=== PATIENT | female | born 1940 | race Caucasian/White ===

== ENCOUNTER 2020-09-27 08:25 | Emergency (ER) | payer MEDICARE, SELFPAY ==
[2020-09-27 08:30] VITALS: BP 144/75; PULSE 81; RESP 16; TEMP 36.2; O2SAT 97; BMI 32.6
[2020-09-27 08:40] VITALS: O2SAT 96
--- NOTE | 2020-09-27 08:49 | CT_ITS ---
STUDY: CT CERVICAL SPINE WITHOUT CONTRAST REASON FOR EXAM: Female, 80 years old. FALL YESTERDAY, C/O NECK PAIN RADIATION DOSAGE (If Supplied By Facility): CTDIvol = ( 22.32 ) mGy, DLP = ( 500.19 ) mGycm TECHNIQUE: High resolution transaxial imaging was performed without contrast material. Sagittal and coronal images were reconstructed. Individualized dose optimization techniques were used for this CT. COMPARISON: None FINDINGS: Craniocervical and atlantoaxial articulations degenerative and intact. Odontoid intact. Cervical straightening. No significant scoliosis. No acute cervical spine fracture, dislocation or osseous destruction. Skull base intact. Symmetric mastoid air cells. Uncomplicated surgical fixation at the C4, C5 and C6 levels. Multilevel neural foraminal narrowing most severe at C5-6. Mild facet joint arthrosis. Multilevel disc/posterior osseous ridging with mild central canal narrowing. Multilevel postsurgical endplates with disc height loss. Normal partially visualized lung apices. Asymmetric left thyroid lobe (axial image 151 series 3) measuring 4.[address]/Spine Cervical without Contras IMPRESSION: Cervical spine acutely intact Cervical straightening with degenerative changes Asymmetric left thyroid lobe (statistically goiter; consider nonemergent ultrasound evaluation) Electronically Signed: Shivam Miller DO at 9:26 EST Tel , Service support ,
--- NOTE | 2020-09-27 09:02 | ED.VIS.GEN ---
History of Present Illness Chief Complaint: Fall Informant: Patient Onset: Yesterday Current Severity: Mild Maximum Severity: Mild Narrative: Patient presents secondary to neck, right arm, right shoulder pain after a fall yesterday. Patient states that she was going out to get her mail yesterday when she fell in the snow. She landed on her right side. She does have history of proximal humerus replacement on the right. She has pain through this area, right upper chest, and states neck pain especially when she tries to lie down. She denies striking her head or loss of consciousness. She is not on anticoagulation. She denies extremity weakness or paresthesias. - Past Medical History (1) Coronary artery disease Status: Chronic (2) H/O heart artery stent Status: Chronic (3) CHF (congestive heart failure) Status: Chronic (4) GERD (gastroesophageal reflux disease) Status: Chronic Past Medical History - Allergies and Home Meds Allergies/Adverse Reactions: Allergies acetaminophen [From Percocet] Allergy (Verified 09/27/20 08:30) Other ampicillin Allergy (Verified 09/27/20 08:30) Rash azithromycin Allergy (Verified 09/27/20 08:30) Rash cefaclor [From Ceclor] Allergy (Verified 09/27/20 08:30) Rash gentamicin [From Garamycin] Allergy (Verified 09/27/20 08:30) Rash oxycodone [From Percocet] Allergy (Verified 09/27/20 08:30) Other tetracycline Allergy (Verified 09/27/20 08:30) Rash atorvastatin [From Lipitor] Adverse Reaction (Verified 09/27/20 08:30) Other rosuvastatin [From Crestor] Adverse Reaction (Verified 09/27/20 08:30) Other Primary Care Physician: Sundar Weller MD [Primary Care Provider] - Surgical History: appendectomy, cholecystectomy, - - Thyroid, proximal right humerus Smoking Status: Former smoker Review of Systems General: Denies: Chills, Fever Eyes: Denies: Visual changes - bilaterally ENT: Denies: Bilateral ear pain Cardiovascular: Reports: Chest pain Respiratory: Denies: Dyspnea, Cough Gastrointestinal: Denies: Abdominal pain, Vomiting, Diarrhea Musculoskeletal: Reports: Neck pain, Extremity Pain Neurological: Denies: Headache, Weakness, Parasthesia Hematologic: Denies: Easy bruising, Easy bleeding Allergy: Denies: Uticaria Physical Exam Vital Signs/Narrative: Vital Signs Temp Pulse Resp BP Pulse Ox 09/27/20 08:40 96 09/27/20 08:30 97.1 F L 81 16 144/75 H 97 Inital Vital Signs reviewed: Yes General: Well nourished, Well developed Head: Normocephalic Neck: Supple, - - No midline cervical tenderness. Cardiovascular: Regular rate, Regular rhythm Respiratory: No distress, CTA bilaterally, Chest tenderness - Mild right upper chest wall tenderness. Abdomen: Soft, Nontender Extremities: - - Mild tenderness of the right humeral head. Skin: Normal color Neurological: Alert, Oriented x3, Normal Strength, Normal Sensation Psychological: Normal affect Diagnostic/Tx/Re-eval Impressions Cervical Spine CT 09/27/20 08:49 IMPRESSION: Cervical spine acutely intact Cervical straightening with degenerative changes Asymmetric left thyroid lobe (statistically goiter; consider nonemergent ultrasound evaluation) Electronically Signed: Shivam Miller DO at 9:26 EST Tel , Service support , Chest X-Ray 09/27/20 09:10 IMPRESSION: No acute cardiopulmonary findings Electronically Signed: Shivam Miller DO at 9:28 EST Tel , Service support , Shoulder X-Ray 09/27/20 09:10 IMPRESSION: Uncomplicated right shoulder arthroplasty No acute fracture or dislocation Degenerative/postsurgical changes, as above Electronically Signed: Shivam Miller DO at 9:27 EST Tel , Service support , 09/27/20 08:49 CT Cervical [Spine Cervical without Contras] [CT] Stat 09/27/20 09:10 Chest PA and Lateral [RAD] Stat Shoulder min 2 Views [RAD] Stat - Medical Decision Making Chest x-ray per my interpretation reveals chronic changes with scoliosis. Right shoulder x-ray reveals chronic postop changes. No acute fracture. Radiologist interpretation is also reviewed. CT the C-spine is obtained. There is straightening of the normal lordosis but no acute fracture or malalignment. Patient is reassured with these findings. She is given return instructions. ED Disposition - Plan for ED Patient: Disposition: Home or Assisted Living Diagnosis: Cervical strain, Contusion of right shoulder Instructions: ED Shoulder Contusion, ED Neck Sprain or Strain, ED Mechanical Fall Referrals: Sundar Weller MD [Primary Care Provider] - 1 Week if not improving
--- NOTE | 2020-09-27 09:10 | RAD_ITS ---
STUDY: X-RAY - RIGHT SHOULDER REASON FOR EXAM: Female, 80 years old. FALL YESTERDAY- RIGHT ARM, NECK AND SHOULDER PAIN. HX RIGHT ARM FX AND SURGERY IN 2007 TECHNIQUE: 4 view(s) of the shoulder. COMPARISON: None. FINDINGS: Cervical fixation hardware. No acute fracture, dislocation or osseous destruction. Uncomplicated right shoulder arthroplasty. Healed right proximal humerus fracture. No significant soft tissue swelling. RAD/Shoulder min 2 Views IMPRESSION: Uncomplicated right shoulder arthroplasty No acute fracture or dislocation Degenerative/postsurgical changes, as above Electronically Signed: Shivam Miller DO at 9:27 EST Tel , Service support ,
--- NOTE | 2020-09-27 09:10 | RAD_ITS ---
STUDY: X-RAY CHEST REASON FOR EXAM: Female, 80 years old. FALL YESTERDAY- RIGHT ARM, NECK AND SHOULDER PAIN. HX RIGHT ARM FX AND SURGERY IN 2007 TECHNIQUE: PA and lateral views of the chest. COMPARISON: None. FINDINGS: Right shoulder arthroplasty. Cervical fixation hardware. Cardiac silhouette unremarkable. Pulmonary vascularity unremarkable. Aorta calcified. No focal patchy airspace opacities. No pleural effusions. COPD. Mild atelectasis. Upper abdominal surgical clips. Osseous structures demineralized with degenerative features. No pneumothorax. RAD/Chest PA and Lateral IMPRESSION: No acute cardiopulmonary findings Electronically Signed: Shivam Miller DO at 9:28 EST Tel , Service support ,
[2020-09-27 10:08] VITALS: BP 118/73; PULSE 71; RESP 16; O2SAT 98
== END 2020-09-27 10:09 | disposition home or self-care (01) ==
PROVIDERS: Emergency Provider Emergency Medicine
DX: S16.1XXA Strain of muscle, fascia and tendon at neck level, initial encounter (principal); S40.011A Contusion of right shoulder, initial encounter; I25.10 Atherosclerotic heart disease of native coronary artery without angina pectoris; Z95.5 Presence of coronary angioplasty implant and graft; Z90.49 Acquired absence of other specified parts of digestive tract; Z87.891 Personal history of nicotine dependence; W19.XXXA Unspecified fall, initial encounter
CPT/HCPCS: 71046; 72125; 73030; 99282

== ENCOUNTER 2021-07-30 06:27 | Inpatient (IN) | payer MEDICARE, SELFPAY ==
[2021-07-30] VITALS (14 sets, daily range): BP systolic 113–125; BP diastolic 54–61; PULSE 62–72; RESP 17–33; TEMP 36.4–37; O2SAT 82–97; BMI 36.9; BMI 31.2
--- NOTE | 2021-07-30 06:29 | RAD_ITS ---
STUDY: X-RAY CHEST REASON FOR EXAM: Female, 81 years old. dyspnea TECHNIQUE: Single AP portable view of the chest. COMPARISON: 09/27/2020 FINDINGS: Status post anterior cervical discectomy and fusion lower cervical spine. Patchy alveolar opacities in both lung bases consistent with bibasilar pneumonia. There is no demonstrated pleural abnormality. There is moderate cardiac enlargement. Normal mediastinum and marino. Normal visualized pulmonary arteries. Normal visualized aortic arch and descending thoracic aorta. There is a dextroscoliosis of the thoracic spine. Status post right shoulder hemiarthroplasty. There is no demonstrated abnormality of the visualized soft tissue structures of the upper abdomen. RAD/Chest 1 View (Portable) IMPRESSION: Bibasilar pneumonia. Electronically Signed: Rowdy Malik MD at 8:21 EST Tel , Service support ,
--- NOTE | 2021-07-30 06:29 | EKG12_ITS ---
Test Reason : SOB Blood Pressure : / mmHG Vent. Rate : 073 BPM Atrial Rate : 073 BPM P-R Int : 156 ms QRS Dur : 076 ms QT Int : 370 ms P-R-T Axes : 048 -14 040 degrees QTc Int : 407 ms Normal sinus rhythm Normal ECG Confirmed by GREYSON MCNALLY, AASHISH ([id number]), book editor FINESSE MARCELO ([id number]) on 07/31/2021 10:39:08 AM Referred By: CHACORTA Confirmed By:AASHISH RUBI MD
--- NOTE | 2021-07-30 06:31 | EDS_ITS ---
HPI <Dr. Johnny Blas, DO - Last Filed: 07/30/21 07:17> History of Present Illness Chief Complaint: Shortness of Breath Narrative Narrative: 81-year-old female on day 8 of COVID-19 symptoms presenting for evaluation. Patient states that she was in [place] last week and she found out that the people she was with tested positive for COVID-19. She did a home test this week which was positive. She complains of chills, body aches, cough, shortness of breath over this timeframe. She states she does not believe she had a fever. She has shortness of breath and shortness of breath with exertion. She states that she has a very painful cough and points to the center of her chest and states that it hurts for a couple of seconds after she coughs but other than that she is not having any chest pain. She has complained of diarrhea which is black over the course of this week. She states this is happened multiple times. She is denies history of gastric ulcer but does have a history of GERD. She is not on any blood thinners. She denies taking aspirin daily. She is 82% on room air. She is not usually oxygen dependent. She relates a history of CAD, CHF, GERD. She states she has been in touch with her primary care physician however after reporting a black stool she states that he did not seem very concerned. Patient does report now that she has been very lightheaded. She has some mild lower abdominal cramping. She denies urinary complaints. PFSH <Dr. Johnny Blas, DO - Last Filed: 07/30/21 07:17> [facility] Home Medications furosemide [Lasix] 40 mg PO BID 07/30/21 [History Last Taken Unknown] ondansetron HCl 8 mg BID PRN PRN 07/30/21 [History Last Taken Unknown] potassium 40 mg PO BID 07/30/21 [History Last Taken Unknown] Allergy/AdvReac Type Severity Reaction Status Date / Time acetaminophen [From Percocet] Allergy Other Verified 07/30/21 07:06 ampicillin Allergy Rash Verified 07/30/21 07:06 azithromycin Allergy Rash Verified 07/30/21 07:06 cefaclor [From Ceclor] Allergy Rash Verified 07/30/21 07:06 gentamicin [From Garamycin] Allergy Rash Verified 07/30/21 07:06 oxycodone [From Percocet] Allergy Other Verified 07/30/21 07:06 tetracycline Allergy Rash Verified 07/30/21 07:06 atorvastatin [From Lipitor] AdvReac Other Verified 07/30/21 07:06 rosuvastatin [From Crestor] AdvReac Other Verified 07/30/21 07:06 Social History Smoking Status: Never smoker ROS <Dr. Johnny Blas, - Last Filed: 07/30/21 07:17> ROS ED Constitutional Constitutional ED: Reports chills and fever(s) Eyes Eyes: Denies blurry vision or diplopia ENT ENT ED: Reports rhinorrhea; Denies ear pain Cardiovascular Cardiovascular: Reports palpitations; Denies chest pain Respiratory/Chest Respiratory/Chest: Reports cough, dyspnea and dyspnea on exertion Gastrointestinal Gastrointestinal: Reports abdominal pain, diarrhea and melena Genitourinary Genitourinary ED: Denies dysuria or hematuria Musculoskeletal Musculoskeletal: Reports myalgias; Denies arthralgias or neck pain Integumentary Denies abscess or rash Neurologic Neurologic: Denies headache(s) or paresthesias Psychiatric Psychiatric: Denies anxiety or depression EXAM <Dr. Johnny Blas, - Last Filed: 07/30/21 07:17> Physical Exam Const Vital Signs: 07/30/21 06:27 07/30/21 06:29 07/30/21 07:05 Temperature 97.7 F L 97.7 F L 97.5 F L Temperature Source Temporal Temporal Temporal Pulse Rate 70 72 Respiratory Rate 17 22 H Respiratory Effort Blood Pressure 125/55 H 125/55 H Blood Pressure Mean 78 78 Pulse Ox 82 93 94 Oxygen Delivery Method Room Air Nasal Cannula Nasal Cannula Oxygen Flow Rate (L/min) 4 4 07/30/21 07:09 07/30/21 08:03 07/30/21 10:05 Temperature 98.6 F Temperature Source Oral Pulse Rate 69 70 Respiratory Rate 33 H 27 H Respiratory Effort Short of Breath Blood Pressure Blood Pressure Mean Pulse Ox 97 93 Oxygen Delivery Method Nasal Cannula Nasal Cannula Oxygen Flow Rate (L/min) 4 4 Positive obese Constitutional Narrative: Hypoxic but does not appear to be in distress. Speaking in full sentences. General Appearance ED: Negative for pallor Nutritional Appearance: obese HEENT Reports dry mucous membranes atraumatic Mouth ED: Yes dry mucous membranes Mouth: dry mucous membranes Eyes PERRL and EOMs intact bilaterally General Eye ED: Negative for pale conjunctiva or scleral icterus Resp Auscultation: rales diffuse; Negative for wheezes Cardio regular rate and regular rhythm GI non-tender and non-distended GI Narrative: Brown stool on examination. No visible blood. Palpation: soft Extremity normal to inspection General Extremety ED: Negative for edema or tenderness General Extremity: Negative for edema Neuro oriented x3 and CN's II-XII intact bilaterally Sensorium / Orientation: alert Motor Exam: general weakness Psych mental status grossly normal Thought Process: normal thought process Skin General Skin Exam: Negative for jaundice or pallor <Dr. Twyla Shen MD - Last Filed: 07/30/21 11:11> Physical Exam Const Vital Signs: 07/30/21 06:27 07/30/21 06:29 07/30/21 07:05 Temperature 97.7 F L 97.7 F L 97.5 F L Temperature Source Temporal Temporal Temporal Pulse Rate 70 72 Respiratory Rate 17 22 H Respiratory Effort Blood Pressure 125/55 H 125/55 H Blood Pressure Mean 78 78 Pulse Ox 82 93 94 Oxygen Delivery Method Room Air Nasal Cannula Nasal Cannula Oxygen Flow Rate (L/min) 4 4 07/30/21 07:09 07/30/21 08:03 07/30/21 10:05 Temperature 98.6 F Temperature Source Oral Pulse Rate 69 70 Respiratory Rate 33 H 27 H Respiratory Effort Short of Breath Blood Pressure Blood Pressure Mean Pulse Ox 97 93 Oxygen Delivery Method Nasal Cannula Nasal Cannula Oxygen Flow Rate (L/min) 4 4 [facility] <Dr. Johnny Blas DO - Last Filed: 07/30/21 07:17> [facility] Narrative Medical decision making narrative: Patient will be signed out to incoming ED physician for follow-up on blood work and imaging. Patient will need to be admitted because she is on 4 L of oxygen via nasal cannula and was in the 70s on her pulse ox at home. Patient on day 8 of symptoms of COVID-19 presenting with hypoxia. Thus far she is afebrile. She is slightly tachypneic with respiratory rate between 17 and 22. Heart rate is normal at 70. Blood pressure is 125/55. Patient placed on O2 at 4 L nasal cannula and is maintaining sats of 93%. Her prehospital systolic blood pressure was low below 100. This is not seen here. I will obtain a sepsis work-up. Since the patient is normotensive and Covid positive with a history of CHF I will hold fluids at this time. Her legs are nonedematous. Her lungs have diffuse rales. Due to the black stool she is having her history I will obtain an occult stool. Her conjunctiva are pink. Her skin is not pale. I will obtain a type and screen. Since she had a home test for Covid I will get a Covid PCR she is 8 days. EKG on my interpretation shows a normal sinus rhythm with a ventricular rate of 73 bpm without sign of ischemic change. Patient was given a dose of dexamethasone 6 mg IV as well as 40 mg of Protonix. Lab Data Labs: Laboratory Results - last 24 hr 07/30/21 07/30/21 07/30/21 06:33 07:25 07:25 WBC 5.5 RBC 4.22 Hgb 12.6 Hct 38.4 MCV 91.0 MCH 29.9 MCHC 32.8 RDW Std Deviation 44.1 H RDW Coeff of Keri 13.2 Plt Count 198 MPV 11.0 Immature Gran % (Auto) 1.100 H Neut % (Auto) 75.1 H Lymph % (Auto) 12.9 L [place] % (Auto) 10.7 H Eos % (Auto) 0.0 Baso % (Auto) 0.2 Absolute Neuts (auto) 4.2 Absolute Lymphs (auto) 0.71 L Nucleated RBC % 0 PT 13.1 INR 1.1 APTT 30.5 D-Dimer Quant (PE/DVT) 2.16 H* Sodium Potassium Chloride Carbon Dioxide Anion Gap BUN Creatinine Estim Creat Clear Calc Est GFR (MDRD) Af Amer Est GFR (MDRD) Non-Af BUN/Creatinine Ratio Glucose Lactic Acid Calcium Total Bilirubin AST ALT Alkaline Phosphatase Troponin I High Sens B-Natriuretic Peptide Total Protein Albumin Globulin Albumin/Globulin Ratio Urine Color Urine Clarity Urine pH Ur Specific [place] Urine Protein Urine Glucose (UA) Urine Ketones Urine Occult Blood Urine Nitrite Urine Bilirubin Urine Urobilinogen Ur Leukocyte Esterase Urine RBC Urine WBC Ur Squamous Epith Cells Urine Bacteria Urine Mucus COVID-19 (ANIRUDH) Detected Blood Type Antibody Screen 07/30/21 07/30/21 07/30/21 07:25 07:25 07:25 WBC RBC Hgb Hct MCV MCH MCHC RDW Std Deviation RDW Coeff of Keri Plt Count MPV Immature Gran % (Auto) Neut % (Auto) Lymph % (Auto) [place] % (Auto) Eos % (Auto) Baso % (Auto) Absolute Neuts (auto) Absolute Lymphs (auto) Nucleated RBC % PT INR APTT D-Dimer Quant (PE/DVT) Sodium 137 Potassium 4.4 Chloride 107 Carbon Dioxide 21.0 Anion Gap 9 BUN 21 H Creatinine 1.17 H Estim Creat Clear Calc 28.94 Est GFR (MDRD) Af Amer 57 L Est GFR (MDRD) Non-Af 47 L BUN/Creatinine Ratio 17.9 Glucose 113 H Lactic Acid 1.8 Calcium 9.5 Total Bilirubin 0.50 AST 71 H ALT 34 Alkaline Phosphatase 60 Troponin I High Sens 12 B-Natriuretic Peptide Total Protein 7.3 Albumin 2.6 L Globulin 4.7 H Albumin/Globulin Ratio 0.6 L Urine Color Urine Clarity Urine pH Ur Specific [place] Urine Protein Urine Glucose (UA) Urine Ketones Urine Occult Blood Urine Nitrite Urine Bilirubin Urine Urobilinogen Ur Leukocyte Esterase Urine RBC Urine WBC Ur Squamous Epith Cells Urine Bacteria Urine Mucus COVID-19 (ANIRUDH) Blood Type A POSITIVE Antibody Screen NEGATIVE 07/30/21 07/30/21 07:25 07:25 WBC RBC Hgb Hct MCV MCH MCHC RDW Std Deviation RDW Coeff of Keri Plt Count MPV Immature Gran % (Auto) Neut % (Auto) Lymph % (Auto) [place] % (Auto) Eos % (Auto) Baso % (Auto) Absolute Neuts (auto) Absolute Lymphs (auto) Nucleated RBC % PT INR APTT D-Dimer Quant (PE/DVT) Sodium Potassium Chloride Carbon Dioxide Anion Gap BUN Creatinine Estim Creat Clear Calc Est GFR (MDRD) Af Amer Est GFR (MDRD) Non-Af BUN/Creatinine Ratio Glucose Lactic Acid Calcium Total Bilirubin AST ALT Alkaline Phosphatase Troponin I High Sens B-Natriuretic Peptide 75.0 Total Protein Albumin Globulin Albumin/Globulin Ratio Urine Color Yellow Urine Clarity Clear Urine pH 6.0 Ur Specific [place] 1.025 Urine Protein 30 H Urine Glucose (UA) Normal Urine Ketones 15 H Urine Occult Blood 50 H Urine Nitrite Negative Urine Bilirubin 1 H Urine Urobilinogen 1 H Ur Leukocyte Esterase 100 H Urine RBC 0 SEEN Urine WBC 10-25 SEEN Ur Squamous Epith Cells 0-5 SEEN Urine Bacteria 2+ Urine Mucus 0 SEEN COVID-19 (ANIRUDH) Blood Type Antibody Screen Radiography Diagnostic Testing: Clinical Impression(s) from Imaging Studies Chest X-Ray 07/30/21 06:29 IMPRESSION: Bibasilar pneumonia. Electronically Signed: Rowdy Malik MD at 8:21 EST Tel , Service support , Chest CTA 07/30/21 08:52 IMPRESSION: 1. No CT evidence of pulmonary embolism. 2. Bilateral subsegmental atelectasis or pneumonitis. Commonly reported imaging features of Covid 19 pneumonia are present. Other processes such as influenza pneumonia and organizing pneumonia as can be seen from drug toxicity or connective tissue disease can cause a similar imaging pattern. 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 Ultrasound may be useful. Electronically Signed: Rowdy Malik MD at 10:53 EST Tel , Service support , <Dr. Twyla Shen MD - Last Filed: 07/30/21 11:11> [facility] Lab Data Labs: Laboratory Results - last 24 hr 07/30/21 07/30/21 07/30/21 06:33 07:25 07:25 WBC 5.5 RBC 4.22 Hgb 12.6 Hct 38.4 MCV 91.0 MCH 29.9 MCHC 32.8 RDW Std Deviation 44.1 H RDW Coeff of Keri 13.2 Plt Count 198 MPV 11.0 Immature Gran % (Auto) 1.100 H Neut % (Auto) 75.1 H Lymph % (Auto) 12.9 L [place] % (Auto) 10.7 H Eos % (Auto) 0.0 Baso % (Auto) 0.2 Absolute Neuts (auto) 4.2 Absolute Lymphs (auto) 0.71 L Nucleated RBC % 0 PT 13.1 INR 1.1 APTT 30.5 D-Dimer Quant (PE/DVT) 2.16 H* Sodium Potassium Chloride Carbon Dioxide Anion Gap BUN Creatinine Estim Creat Clear Calc Est GFR (MDRD) Af Amer Est GFR (MDRD) Non-Af BUN/Creatinine Ratio Glucose Lactic Acid Calcium Total Bilirubin AST ALT Alkaline Phosphatase Troponin I High Sens B-Natriuretic Peptide Total Protein Albumin Globulin Albumin/Globulin Ratio Urine Color Urine Clarity Urine pH Ur Specific [place] Urine Protein Urine Glucose (UA) Urine Ketones Urine Occult Blood Urine Nitrite Urine Bilirubin Urine Urobilinogen Ur Leukocyte Esterase Urine RBC Urine WBC Ur Squamous Epith Cells Urine Bacteria Urine Mucus COVID-19 (ANIRUDH) Detected Blood Type Antibody Screen 07/30/21 07/30/21 07/30/21 07:25 07:25 07:25 WBC RBC Hgb Hct MCV MCH MCHC RDW Std Deviation RDW Coeff of Keri Plt Count MPV Immature Gran % (Auto) Neut % (Auto) Lymph % (Auto) [place] % (Auto) Eos % (Auto) Baso % (Auto) Absolute Neuts (auto) Absolute Lymphs (auto) Nucleated RBC % PT INR APTT D-Dimer Quant (PE/DVT) Sodium 137 Potassium 4.4 Chloride 107 Carbon Dioxide 21.0 Anion Gap 9 BUN 21 H Creatinine 1.17 H Estim Creat Clear Calc 28.94 Est GFR (MDRD) Af Amer 57 L Est GFR (MDRD) Non-Af 47 L BUN/Creatinine Ratio 17.9 Glucose 113 H Lactic Acid 1.8 Calcium 9.5 Total Bilirubin 0.50 AST 71 H ALT 34 Alkaline Phosphatase 60 Troponin I High Sens 12 B-Natriuretic Peptide Total Protein 7.3 Albumin 2.6 L Globulin 4.7 H Albumin/Globulin Ratio 0.6 L Urine Color Urine Clarity Urine pH Ur Specific [place] Urine Protein Urine Glucose (UA) Urine Ketones Urine Occult Blood Urine Nitrite Urine Bilirubin Urine Urobilinogen Ur Leukocyte Esterase Urine RBC Urine WBC Ur Squamous Epith Cells Urine Bacteria Urine Mucus COVID-19 (ANIRUDH) Blood Type A POSITIVE Antibody Screen NEGATIVE 07/30/21 07/30/21 07:25 07:25 WBC RBC Hgb Hct MCV MCH MCHC RDW Std Deviation RDW Coeff of Keri Plt Count MPV Immature Gran % (Auto) Neut % (Auto) Lymph % (Auto) [place] % (Auto) Eos % (Auto) Baso % (Auto) Absolute Neuts (auto) Absolute Lymphs (auto) Nucleated RBC % PT INR APTT D-Dimer Quant (PE/DVT) Sodium Potassium Chloride Carbon Dioxide Anion Gap BUN Creatinine Estim Creat Clear Calc Est GFR (MDRD) Af Amer Est GFR (MDRD) Non-Af BUN/Creatinine Ratio Glucose Lactic Acid Calcium Total Bilirubin AST ALT Alkaline Phosphatase Troponin I High Sens B-Natriuretic Peptide 75.0 Total Protein Albumin Globulin Albumin/Globulin Ratio Urine Color Yellow Urine Clarity Clear Urine pH 6.0 Ur Specific [place] 1.025 Urine Protein 30 H Urine Glucose (UA) Normal Urine Ketones 15 H Urine Occult Blood 50 H Urine Nitrite Negative Urine Bilirubin 1 H Urine Urobilinogen 1 H Ur Leukocyte Esterase 100 H Urine RBC 0 SEEN Urine WBC 10-25 SEEN Ur Squamous Epith Cells 0-5 SEEN Urine Bacteria 2+ Urine Mucus 0 SEEN COVID-19 (ANIRUDH) Blood Type Antibody Screen Radiography Chest X-Ray - ED: 1 View, Read by ED Physician, Right Infiltrate and Left Infiltrate Diagnostic Testing: Clinical Impression(s) from Imaging Studies Chest X-Ray 07/30/21 06:29 IMPRESSION: Bibasilar pneumonia. Electronically Signed: Rowdy Malik MD at 8:21 EST Tel , Service support , Chest CTA 07/30/21 08:52 IMPRESSION: 1. No CT evidence of pulmonary embolism. 2. Bilateral subsegmental atelectasis or pneumonitis. Commonly reported imaging features of Covid 19 pneumonia are present. Other processes such as influenza pneumonia and organizing pneumonia as can be seen from drug toxicity or connective tissue disease can cause a similar imaging pattern. 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 Ultrasound may be useful. Electronically Signed: Rowdy Malik MD at 10:53 EST Tel , Service support , EKG Initial EKG: Attestation: I personally reviewed and interpreted this EKG as follows: Interpretation: Sinus Rhythm (Sinus at 73 with no acute ischemia.) Treatment and Re-Evaluation Comments:: Patient signed out to me pending test results. Lab work largely unremarkable. Stool guaiac test is negative. Covid PCR does return positive. Urinalysis does reveal infection with 10-25 white cells and 2+ bacteria. She is given a dose of IV Bactrim based on her allergies. CTA of the chest reveals bilateral pneumonia but no evidence of PE. On repeat evaluation patient resting comfortably. She is still on 4 L nasal cannula and satting 92 to 95%. I will speak with hospitalist regarding admission. Discharge Plan Triage Chief Complaint: Shortness of Breath ED Provider: Twyla Shen Dx/Rx/DC Orders Clinical Impression: Pneumonia due to COVID-19 virus, UTI (urinary tract infection) Prescriptions: No Action furosemide [Lasix] 40 mg Tablet 40 mg PO BID RF: 0 potassium 20 mg Tablet,Chewable 40 mg PO BID RF: 0 ondansetron HCl 8 mg tablet 8 mg BID PRN PRN (Reason: Nausea) RF: 0 Primary Care Provider: Sundar Weller Referrals: Sundar Weller MD [Primary Care Provider] - Disposition Disposition: Acute Care Hospital [facility]
[2021-07-30 07:38] LABS: Mucous, Urine 0 SEEN /hpf (<or=2+); Red Blood Cells-Urine 0 SEEN /hpf (0-5)
[2021-07-30 07:47] LABS: Color, Urine Yellow (Yellow); Glucose, Dipstick Normal (Normal); Ketone-Dipstick 15 mg/dl (Negative); Leukocyte Esterase-Dipstick 100 /ul (Negative); Nitrite-Dipstick Negative (Negative); Occult Blood-Urine 50 /ul (Negative); Protein-Dipstick 30 mg/dl (Negative); Specific Gravity, Urine 1.025 (1.002-1.030); Urine Clarity Clear (Clear); Urine Urobilinogen 1 mg/dl (Normal)
[2021-07-30 07:53] LABS: Urine Bilirubin Dipstick 1 mg/dL (Negative)
[2021-07-30] MEDS: dexAMETHasone 10 MG/ML Vial 6 MG IV (07:54)
[2021-07-30 08:06] LABS: Absolute Lymphocyte Count 0.71 X10^3/uL (0.83-4.51); Absolute Neutrophil Count 4.2 X10^3/uL (2.0-7.7); Basophil# 0.01 X10^3/uL; Basophil% 0.2 % (0-1); Hematocrit 38.4 % (37-47); Hemoglobin 12.6 g/dL (12.0-15.0); Lymphocyte # 0.71 X10^3/ul (0.83-4.51); Lymphocyte % 12.9 % (19-41); Mean Corp Hgb Conc 32.8 g/dL (32-36); Mean Corpuscular Hgb 29.9 pg (27.0-32.0); Monocyte# 0.59 X10^3/uL; Monocyte% 10.7 % (0-10); NRBC Flagged by Analyzer 0 % (0-5); Neutrophil # 4.15 X10^3/uL (2.7-7.7); Neutrophil % 75.1 % (47-70); Platelet Count 198 K/mm3 (150-450); RBC Distribution Width CV 13.2 % (11.6-14.6); RBC Distribution Width SD 44.1 fl (35.1-43.9); Red Blood Count 4.22 M/mm3 (4.2-5.4); White Blood Count 5.5 K/mm3 (4.4-11.0)
[2021-07-30 08:08] LABS: Bacteria 2+ /hpf (None Seen); Squamous Epithelial Cells - UA 0-5 SEEN /hpf (5-10); White Blood Cells 10-25 SEEN /hpf (0-5)
[2021-07-30 08:21] LABS: ALB/GLOB Ratio 0.6 RATIO (0.9-2.4); AST(SGOT) 71 U/L (15-37); Alanine Aminotransfer ALT/SGPT 34 U/L (13-56); Albumin, Serum 2.6 g/dL (3.2-5.0); Alkaline Phosphatase 60 U/L (45-117); Anion Gap 9 (5-15); BUN 21 mg/dL (7-18); BUN/Creat Ratio 17.9 RATIO (10-20); Calcium,Total 9.5 mg/dL (8.5-10.1); Chloride 107 mmol/L (98-107); Creatinine, Serum 1.17 mg/dL (0.55-1.02); EST Glomerular Filtration Rate 47 mL/min (>60); Est Glom Filt Rate - Afr Amer 57 mL/min (>60); Estimated Creatinine Clearance 28.94 ml/min; Globulin 4.7 g/dL (2.2-4.2); Glucose 113 mg/dL (74-106); Potassium 4.4 mmol/L (3.5-5.1); Protein, Total 7.3 g/dL (6.4-8.2); Sodium Level 137 mmol/L (136-145); Troponin-I HS 12 pg/mL (3.0-54.0)
[2021-07-30 08:27] LABS: Lactic Acid 1.8 mmol/L (0.4-1.9)
[2021-07-30 08:42] LABS: International Normalized Ratio 1.1; Partial Thromboplast Time 30.5 Seconds (24.1-36.2); Prothrombin Time (Protime)PT. 13.1 SECONDS (11.7-14.9)
[2021-07-30 08:48] LABS: D-Dimer Quantitative (DVT/PE) 2.16 FEU/ug/m (0.27-0.49)
--- NOTE | 2021-07-30 08:52 | CT_ITS ---
STUDY: CTA CHEST REASON FOR EXAM: Female, 81 years old. pulmonary embolism RADIATION DOSAGE (If Supplied By Facility): CTDIvol = ( 14.55 ) mGy, DLP = ( 443.25 ) mGycm TECHNIQUE: The examination was performed with the intravenous administration of IV 100mL Isovue-300. Post-processing of the angiographic images was performed, with multiplanar reformation and 3D reconstruction. Individualized dose optimization techniques were used for this CT. COMPARISON: Chest x-ray earlier today FINDINGS: Enlarged heterogeneous thyroid gland with substernal extension on the left consistent with goiter. Ultrasound may be useful. Normal enhancement of the main pulmonary artery and right and left pulmonary arteries. Normal enhancement of the bilateral peripheral pulmonary arteries. There is no demonstrated pulmonary embolism. Normal thoracic aorta and visualized great vessels. There is no demonstrated aortic dissection. Normal heart and pericardium. There are calcifications of the coronary arteries. Small hiatal hernia. Normal hilar regions. Normal visualized trachea and bronchi. The lungs are well expanded. Bilateral patchy groundglass opacities consistent with subsegmental atelectasis or pneumonitis. Normal pleura. Normal chest wall structures. Normal osseous structures. Normal visualized upper abdomen. CT/CTA Chest W/WO Contrast IMPRESSION: 1. No CT evidence of pulmonary embolism. 2. Bilateral subsegmental atelectasis or pneumonitis. Commonly reported imaging features of Covid 19 pneumonia are present. Other processes such as influenza pneumonia and organizing pneumonia as can be seen from drug toxicity or connective tissue disease can cause a similar imaging pattern. 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 Ultrasound may be useful. Electronically Signed: Rowdy Malik MD at 10:53 EST Tel , Service support ,
--- NOTE | 2021-07-30 11:16 | PCM.HP.STD ---
HPI - General General Date of Admission: 07/30/21 Date of Service: 07/30/21 Chief Complaint: Shortness of breath HPI Narrative CEASAR KIRBY, is a 81 F who presents with shortness of breath. Patient is currently on vaccinated against COVID-19. She was apparently at an event in [place]. She learned some of the contact she was with her tested positive for Covid. Says symptoms started 8 days prior to admission. She initially did experience progressive generalized weakness. She later developed shortness of breath and cough which has since gotten progressively worse. She finally called the squad and was found to be hypoxic saturating 82% on room air was placed on supplemental oxygen and transferred to the ED. [facility] Home Medications furosemide [Lasix] 40 mg PO BID 07/30/21 [History Last Taken Unknown] ondansetron HCl 8 mg BID PRN PRN 07/30/21 [History Last Taken Unknown] potassium 40 mg PO BID 07/30/21 [History Last Taken Unknown] Allergy/AdvReac Type Severity Reaction Status Date / Time acetaminophen [From Percocet] Allergy Other Verified 07/30/21 07:06 ampicillin Allergy Rash Verified 07/30/21 07:06 azithromycin Allergy Rash Verified 07/30/21 07:06 cefaclor [From Ceclor] Allergy Rash Verified 07/30/21 07:06 gentamicin [From Garamycin] Allergy Rash Verified 07/30/21 07:06 oxycodone [From Percocet] Allergy Other Verified 07/30/21 07:06 tetracycline Allergy Rash Verified 07/30/21 07:06 atorvastatin [From Lipitor] AdvReac Other Verified 07/30/21 07:06 rosuvastatin [From Crestor] AdvReac Other Verified 07/30/21 07:06 Family History (Updated 07/30/21 @ 11:[address] Miguelito Godinez MD) Father Heart disease Mother Colon cancer Social History Smoking Status: Never smoker ROS ROS Narrative GENERAL: , anorexia HEENT: headache, sinus congestion, RESPIRATORY: cough, shortness of breath CARDIAC: denies chest pain, palpitations, GASTROINTESTINAL: denies abdominal pain, GENITOURINARY: denies dysuria, urgency, EXTREMITY: denies swelling MUSCULOSKELETAL: denies current joint pain NEUROLOGIC: denies focal numbness, HEMATOLOGIC: denies easy bruising INTEGUMENT: denies rashes PSYCHIATRIC: denies suicidal Vital Signs Vital Signs Vital Signs: 07/30/21 06:27 07/30/21 06:29 07/30/21 07:05 Temperature 97.7 F L 97.7 F L 97.5 F L Temperature Source Temporal Temporal Temporal Pulse Rate 70 72 Respiratory Rate 17 22 H Respiratory Effort Blood Pressure 125/55 H 125/55 H Blood Pressure Mean 78 78 Pulse Ox 82 93 94 Oxygen Delivery Method Room Air Nasal Cannula Nasal Cannula Oxygen Flow Rate (L/min) 4 4 07/30/21 07:09 07/30/21 08:03 07/30/21 10:05 Temperature 98.6 F Temperature Source Oral Pulse Rate 69 70 Respiratory Rate 33 H 27 H Respiratory Effort Short of Breath Blood Pressure Blood Pressure Mean Pulse Ox 97 93 Oxygen Delivery Method Nasal Cannula Nasal Cannula Oxygen Flow Rate (L/min) 4 4 07/30/21 11:07 Temperature 97.9 F Temperature Source Temporal Pulse Rate 66 Respiratory Rate 23 H Respiratory Effort Blood Pressure 117/54 L Blood Pressure Mean 75 Pulse Ox 94 Oxygen Delivery Method Nasal Cannula Oxygen Flow Rate (L/min) 4 Weight Weight: 88.7 kg Body Mass Index (BMI) 36.9 Physical Exam Narrative GENERAL: Appears ill looking HEENT: Atraumatic; EYES; Anicteric, Normal Conjunctiva NECK; supple, normal thyroid, RESPIRATORY: Diminished to auscultation CARDIOVASCULAR: Regular S1 S2, GI: soft, normoactive bowel sounds, : No Renal angle tenderness; EXTREMITIES: No edema, no clubbing, MUSCULOSKELETAL: no muscle waisting NEURO: Awake; no lateralizing signs. SKIN: No Rash PSYCH; Flat affect Results Lab / Micro Data Result Diagrams: 07/30/21 07:25 07/30/21 07:25 Labs: Laboratory Results - last 24 hr 07/30/21 06:33: COVID-19 (ANIRUDH) Detected 07/30/21 07:25: WBC 5.5, RBC 4.22, Hgb 12.6, Hct 38.4, MCV 91.0, MCH 29.9, MCHC 32.8, RDW Std Deviation 44.1 H, RDW Coeff of Keri 13.2, Plt Count 198, MPV 11.0, Immature Gran % (Auto) 1.100 H, Neut % (Auto) 75.1 H, Lymph % (Auto) 12.9 L, [place] % (Auto) 10.7 H, Eos % (Auto) 0.0, Baso % (Auto) 0.2, Absolute Neuts (auto) 4.2, Absolute Lymphs (auto) 0.71 L, Nucleated RBC % 0 07/30/21 07:25: PT 13.1, INR 1.1, APTT 30.5, D-Dimer Quant (PE/DVT) 2.16 H* 07/30/21 07:25: Sodium 137, Potassium 4.4, Chloride 107, Carbon Dioxide 21.0, Anion Gap 9, BUN 21 H, Creatinine 1.17 H, Estim Creat Clear Calc 28.94, Est GFR (MDRD) Af Amer 57 L, Est GFR (MDRD) Non-Af 47 L, BUN/Creatinine Ratio 17.9, Glucose 113 H, Calcium 9.5, Total Bilirubin 0.50, AST 71 H, ALT 34, Alkaline Phosphatase 60, Troponin I High Sens 12, Total Protein 7.3, Albumin 2.6 L, Globulin 4.7 H, Albumin/Globulin Ratio 0.6 L 07/30/21 07:25: Lactic Acid 1.8 07/30/21 07:25: Blood Type A POSITIVE, Antibody Screen NEGATIVE 07/30/21 07:25: B-Natriuretic Peptide 75.0 07/30/21 07:25: Urine Color Yellow, Urine Clarity Clear, Urine pH 6.0, Ur Specific [place] 1.025, Urine Protein 30 H, Urine Glucose (UA) Normal, Urine Ketones 15 H, Urine Occult Blood 50 H, Urine Nitrite Negative, Urine Bilirubin 1 H, Urine Urobilinogen 1 H, Ur Leukocyte Esterase 100 H, Urine RBC 0 SEEN, Urine WBC 10-25 SEEN, Ur Squamous Epith Cells 0-5 SEEN, Urine Bacteria 2+, Urine Mucus 0 SEEN Micro: Microbiology 07/30/21 07:15 Stool Stool Occult Blood (CONSUELO) - Final Radiology Impression Chest X-Ray 07/30/21 06:29 IMPRESSION: Bibasilar pneumonia. Electronically Signed: Rowdy Malik MD at 8:21 EST Tel , Service support , Chest CTA 07/30/21 08:52 IMPRESSION: 1. No CT evidence of pulmonary embolism. 2. Bilateral subsegmental atelectasis or pneumonitis. Commonly reported imaging features of Covid 19 pneumonia are present. Other processes such as influenza pneumonia and organizing pneumonia as can be seen from drug toxicity or connective tissue disease can cause a similar imaging pattern. 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 Ultrasound may be useful. Electronically Signed: Rowdy Malik MD at 10:53 EST Tel , Service support , Assessment & Plan Assessment/Plan (1) COVID-19: PLAN: Patient is an 81-year-old lady presented with progressive shortness of breath 1. Acute hypoxic respiratory failure secondary to COVID-19 pneumonia ?Patient has been admitted to a monitored bed treatment initiated with supplemental oxygen in addition to p.o. Decadron as well as remdesivir. Patient had an elevated D-dimer on admission CT of the chest was negative for PE 2. Coronary artery disease ?Previous stent placement. Patient currently not on any dual antiplatelet therapy statins (apparently allergic to statins), no beta-blockers. Patient does not have a PCP in town plan is to consult case management to arrange for primary care physician on discharge 3. Chronic congestive heart failure ?Do suspect 1 with preserved ejection fraction. Symptoms controlled on Lasix 4. Class II obesity with BMI of 36.9 ?Weight loss advised 5. GERD ?Symptomatic treatment 6. DVT prophylaxis ?Lovenox 40 mg SC twice daily Advance planning; did discuss with the patient regarding advanced directives as well as CODE STATUS. Did explain the various scenarios involved ( FULL CODE, DNR CCA, DNR CCA with no intubation, and DNR CC and what each meant) patient elected to remain full code with CPR and intubation if needed. Order was placed. Time spent on discussion 18 minutes. Charges/Coding Visit Charges Inpatient E&M: 26124 Init Hosp L3 Procedures Hospitalists Procedures: 36018 Advncd Care Plan 30 Min
[2021-07-30 12:04] LABS: Fibrinogen 644 mg/dl (203-444)
[2021-07-30 12:08] LABS: Alkaline Phosphatase 58 U/L (45-117); LDH 458 U/L (84-246)
--- NOTE | 2021-07-30 12:40 | PCS.PANDOC ---
PANDEMIC DOCUMENTATION INITIATED: Date: 04/10/2021 Time: 190
[2021-07-30 12:42] LABS: Procalcitonin 0.16 ng/mL (0.00-0.09)
[2021-07-30] MEDS: Furosemide 40 MG Tablet PO (16:15)
[2021-07-30] MEDS: Enoxaparin 40 MG/0.4 ML Syringe SC (21:48)
[2021-07-30] MEDS: Potassium Chloride Oral Tablet 20 MEQ 40 MEQ PO (21:48)
[2021-07-31] VITALS (14 sets, daily range): BP systolic 106–115; BP diastolic 45–88; PULSE 61–68; RESP 18–22; TEMP 36.4–36.9; O2SAT 80–96
[2021-07-31 07:01] LABS: Absolute Lymphocyte Count 0.83 X10^3/uL (0.83-4.51); Basophil# 0.02 X10^3/uL; Basophil% 0.3 % (0-1); Hematocrit 37.3 % (37-47); Hemoglobin 12.5 g/dL (12.0-15.0); Lymphocyte # 0.83 X10^3/ul (0.83-4.51); Lymphocyte % 12.5 % (19-41); Mean Corp Hgb Conc 33.5 g/dL (32-36); Mean Corpuscular Hgb 30.1 pg (27.0-32.0); Mean Corpuscular Volume 89.9 fL (81-99); Mean Platelet Vol. 11.2 fl (6.2-12.0); Monocyte# 0.74 X10^3/uL; Monocyte% 11.2 % (0-10); NRBC Flagged by Analyzer 0 % (0-5); Neutrophil # 4.96 X10^3/uL (2.7-7.7); Neutrophil % 74.8 % (47-70); Platelet Count 239 K/mm3 (150-450); RBC Distribution Width SD 43.5 fl (35.1-43.9); Red Blood Count 4.15 M/mm3 (4.2-5.4); White Blood Count 6.6 K/mm3 (4.4-11.0)
[2021-07-31 07:27] LABS: ALB/GLOB Ratio 0.5 RATIO (0.9-2.4); AST(SGOT) 73 U/L (15-37); Alanine Aminotransfer ALT/SGPT 43 U/L (13-56); Albumin, Serum 2.5 g/dL (3.2-5.0); Alkaline Phosphatase 56 U/L (45-117); Anion Gap 7 (5-15); BUN 23 mg/dL (7-18); BUN/Creat Ratio 23.4 RATIO (10-20); Calcium,Total 9.8 mg/dL (8.5-10.1); Chloride 111 mmol/L (98-107); Creatinine, Serum 0.98 mg/dL (0.55-1.02); EST Glomerular Filtration Rate 58 mL/min (>60); Est Glom Filt Rate - Afr Amer 70 mL/min (>60); Estimated Creatinine Clearance 34.55 ml/min; Globulin 4.6 g/dL (2.2-4.2); Glucose 117 mg/dL (74-106); Phosphorus 1.9 mg/dL (2.5-4.9); Potassium 4.6 mmol/L (3.5-5.1); Protein, Total 7.1 g/dL (6.4-8.2); Sodium Level 138 mmol/L (136-145)
[2021-07-31] MEDS: Enoxaparin 40 MG/0.4 ML Syringe SC ×2 (10:21→21:29)
[2021-07-31] MEDS: dexAMETHasone 4 MG Tablet 6 MG PO (10:22)
[2021-07-31] MEDS: Potassium Chloride Oral Tablet 20 MEQ 40 MEQ PO ×2 (10:22→21:29)
[2021-07-31] MEDS: Furosemide 40 MG Tablet PO ×2 (10:23→16:06)
[2021-07-31] MEDS: 0.9% Saline Lock 10 ML Syringe IV (10:23)
--- NOTE | 2021-07-31 11:33 | PN.HOSP_ITS ---
Subjective Subjective Follow-up on acute hypoxic respiratory failure/acute COVID-19 pneumonia: Patient was seen and examined. He is currently on 4 L of oxygen. She complains of generalized weakness. Denies any fever or chills. Objective Data Objective Data Vital Signs: Vital Signs Temp Pulse Resp BP Pulse Ox 98.5 F 68 18 115/62 91 07/31/21 10:10 07/31/21 10:10 07/31/21 10:10 07/31/21 10:10 07/31/21 10:10 Oxygen Flow Rate (L/min) 4 Oxygen Delivery Method Nasal Cannula Weight: 76.204 kg Body Mass Index (BMI) 31.2 Intake & Output: Intake and Output for Last 24 Hours 07/29/21 07/30/21 07/31/21 23:59 23:59 23:59 Intake Total 820 / 820 350 / 350 Output Total 850 / 850 Balance 820 / 320 -500 / -500 Lab / Micro Data Result Diagrams: 07/31/21 06:30 07/31/21 06:30 Labs: Laboratory Results - last 24 hr 07/30/21 07:25: Fibrinogen 644 H 07/30/21 07:25: Alkaline Phosphatase 58, Lactate Dehydrogenase 458 H, C-React Prot Ext Range 49.80 H 07/30/21 12:00: Procalcitonin 0.16 H 07/31/21 06:30: WBC 6.6, RBC 4.15 L, Hgb 12.5, Hct 37.3, MCV 89.9, MCH 30.1, MCHC 33.5, RDW Std Deviation 43.5, RDW Coeff of Keri 13.0, Plt Count 239, MPV 11.2, Immature Gran % (Auto) 1.200 H, Neut % (Auto) 74.8 H, Lymph % (Auto) 12.5 L, [place] % (Auto) 11.2 H, Eos % (Auto) 0.0, Baso % (Auto) 0.3, Absolute Neuts (auto) 5.0, Absolute Lymphs (auto) 0.83, Nucleated RBC % 0 07/31/21 06:30: Sodium 138, Potassium 4.6, Chloride 111 H, Carbon Dioxide 20.0 L , Anion Gap 7, BUN 23 H, Creatinine 0.98, Estim Creat Clear Calc 34.55, Est GFR (MDRD) Af Amer 70, Est GFR (MDRD) Non-Af 58 L, BUN/Creatinine Ratio 23.4 H, Glucose 117 H, Calcium 9.8, Phosphorus 1.9 L, Magnesium 2.0, Total Bilirubin 0.50, AST 73 H, ALT 43, Alkaline Phosphatase 56, Total Protein 7.1, Albumin 2.5 L, Globulin 4.6 H, Albumin/Globulin Ratio 0.5 L Micro: Microbiology 07/30/21 07:25 Urine, Clean Catch Streptococcus pneumoniae Antigen (M - Final 07/30/21 07:25 Urine, Clean Catch Legionella Antigen - Final 07/30/21 07:15 Stool Stool Occult Blood (CONSUELO) - Final Physical Exam Narrative Physical exam: General: Alert, Oriented x3, Cooperative, No apparent distress, appears frail, on 4 L oxygen HEENT: Atraumatic Oral: Moist Mucosa Neck: Supple Lungs: Diminished to auscultation Cardiovascular: HS I+II, regular, no murmurs Abdomen: Bowel Sounds Present, Soft, Non Tender Extremities: No edema Assessment & Plan Assessment/Plan (1) Pneumonia due to COVID-19 virus: (2) Acute respiratory failure with hypoxia: (3) Hypophosphatemia: PLAN: 1. Acute hypoxic respiratory failure secondary to acute COVID-19 pneumonia Patient is currently on 4 L of oxygen Continue remdesivir and Decadron 2. Hypophosphatemia, replace, recheck in a.m. 3. Rest of chronic medical conditions including CAD, status post stent, CHF, GERD remained stable Continue on Lasix and potassium Charges/Coding Visit Charges Inpatient E&M: 23173 Subs Hosp L2
[2021-07-31] MEDS: Na Biphos/Potassium Phosphate PACKET 1 PACKET PO ×2 (16:06→21:29)
[2021-07-31] MEDS: guaiFENesin 10 ML UDC (200MG/10ML) 20 ML PO (16:06)
--- NOTE | 2021-07-31 16:15 | CASEMGMT ---
RN CM in to pt room for assessment. Nurse at bedside and states pt was just up and now has pulse ox in the 80's. Requested RN CM to come back.
--- NOTE | 2021-07-31 16:32 | NURSING ---
HOME O2 QUALIFICATION - O2 SAT 85% @ REST LYING IN BED 86% 2L NC SITTING ON SIDE OF BED 80% 3L AFTER SITTING ON SIDE OF BED FOR 1-2 MINUTES PT THEN UNABLE TO TOLERATE ACTIVITY, HAD TO LAY BACK DOWN IN BED. 87% ON 5L NC @ REST
--- NOTE | 2021-07-31 16:43 | NURSING ---
HOME OXYGEN QUALIFICATION COMPLETED - CORTEXT TO DR RUSSELL WITH RESULTS.
--- NOTE | 2021-07-31 21:59 | NURSING ---
Patient assisted onto right side at this time, 02 increased to 9L HF. RT called and notified.
[2021-08-01] VITALS (11 sets, daily range): BP systolic 111–134; BP diastolic 44–61; PULSE 57–67; RESP 18–20; TEMP 36.6–36.8; O2SAT 93–98
[2021-08-01 07:56] LABS: Absolute Lymphocyte Count 1.08 X10^3/uL (0.83-4.51); Absolute Neutrophil Count 7.1 X10^3/uL (2.0-7.7); Basophil# 0.03 X10^3/uL; Basophil% 0.3 % (0-1); Eosinophil# 0.05 X10^3/uL; Eosinophils% 0.5 % (0-5); Hematocrit 39.9 % (37-47); Hemoglobin 13.9 g/dL (12.0-15.0); Lymphocyte # 1.08 X10^3/ul (0.83-4.51); Lymphocyte % 11.6 % (19-41); Mean Corp Hgb Conc 34.8 g/dL (32-36); Mean Corpuscular Hgb 30.8 pg (27.0-32.0); Mean Corpuscular Volume 88.5 fL (81-99); Mean Platelet Vol. 12.2 fl (6.2-12.0); Monocyte# 0.95 X10^3/uL; Monocyte% 10.2 % (0-10); NRBC Flagged by Analyzer 1.2 % (0-5); Neutrophil # 7.05 X10^3/uL (2.7-7.7); Neutrophil % 75.9 % (47-70); POSITIVE COUNT YES; POSITIVE MORPHOLOGY YES; Platelet Count 250 K/mm3 (150-450); RBC Distribution Width CV 13.2 % (11.6-14.6); RBC Distribution Width SD 43.2 fl (35.1-43.9); Red Blood Count 4.51 M/mm3 (4.2-5.4); White Blood Count 9.3 K/mm3 (4.4-11.0)
[2021-08-01 08:11] LABS: Differential Indicated SCAN CRITERIA MET
[2021-08-01 08:49] LABS: ALB/GLOB Ratio 0.5 RATIO (0.9-2.4); AST(SGOT) 72 U/L (15-37); Alanine Aminotransfer ALT/SGPT 50 U/L (13-56); Albumin, Serum 2.6 g/dL (3.2-5.0); Alkaline Phosphatase 62 U/L (45-117); Anion Gap 8 (5-15); BUN 41 mg/dL (7-18); BUN/Creat Ratio 37.6 RATIO (10-20); Calcium,Total 9.6 mg/dL (8.5-10.1); Chloride 109 mmol/L (98-107); Creatinine, Serum 1.09 mg/dL (0.55-1.02); EST Glomerular Filtration Rate 51 mL/min (>60); Est Glom Filt Rate - Afr Amer 62 mL/min (>60); Estimated Creatinine Clearance 31.06 ml/min; Glucose 110 mg/dL (74-106); Potassium 4.9 mmol/L (3.5-5.1); Protein, Total 7.6 g/dL (6.4-8.2); Sodium Level 138 mmol/L (136-145)
[2021-08-01 08:58] LABS: Reactive Lymphocyte RARE
[2021-08-01] MEDS: Enoxaparin 40 MG/0.4 ML Syringe SC ×2 (09:28→21:22)
[2021-08-01] MEDS: Furosemide 40 MG Tablet PO ×2 (09:29→18:14)
[2021-08-01] MEDS: Potassium Chloride Oral Tablet 20 MEQ 40 MEQ PO ×2 (09:29→21:24)
[2021-08-01] MEDS: dexAMETHasone 4 MG Tablet 6 MG PO (09:29)
[2021-08-01] MEDS: Na Biphos/Potassium Phosphate PACKET 1 PACKET PO (09:29)
--- NOTE | 2021-08-01 14:55 | CASEMGMT ---
RAJ TONY Assessment: Face to Face with pt for initial transition planning/care coordination assessment. RAJ TONY introduced self and role at [facility], pt voices understanding and consents to assessment. Pt is A/O x4 and answers all questions appropriately at this time. Pt lying in bed with O2 on in no distress. Care providers, pharmacy, and demographics verified/updated. Admitting Dx: COVID PCP: N[facility] Specialists:Pt denies having any specialists. [facility]erred [facility]acy: [facility] Insurance: [facility] Prescription Benefit: yes LW/HPOA: Pt states she has a LW/DPOA and her son is her DPOA, Prabhu Jeffries. She states he will bring in to be scanned into her chart. LNOK: Prabhu Jeffries, son Living Arrangements: Pt lives with son in a single story house with one step to enter. Pt reports she is I in ADL's and denies concerns at home. Transportation: Pt drives self and denies concerns with transportation. DME/HHC/SNF: Pt has a pulse ox at home, grab bars at the toilet and shower. Pt denies hx of HHC and SNF stays. Pt states she was first tested for COVID at [facility]. She states her son is also positive. She has a neighbor who can provide her with groceries and supplies while in quarantine and the neighbor already did this yesterday for her son. Discussed local DME companies should the patient need home O2, pt denies having a preference. Pt states no concerns with going home at time of dc. Pt states no further concerns/needs. CM to follow. Advised pt to ask CM if any further question/concerns/needs arise, voices understanding. Pt Goal: Home Plan: Home
--- NOTE | 2021-08-01 15:19 | PN.HOSP_ITS ---
Subjective Subjective Follow-up on acute hypoxic respiratory failure/acute COVID-19 pneumonia: Patient was seen and examined. Her oxygen requirements has worsened; currently on 8L oxygen. Denies any fever or chills. Objective Data Objective Data Vital Signs: Vital Signs Temp Pulse Resp BP Pulse Ox 98 F 62 18 121/56 H 96 08/01/21 09:26 08/01/21 10:00 08/01/21 09:26 08/01/21 09:26 08/01/21 09:26 Oxygen Flow Rate (L/min) [At 5 REST with Oxygen] Oxygen Flow Rate (L/min) [ 3 AMBULATING with Oxygen #2] Oxygen Flow Rate (L/min) [ 2 AMBULATING with Oxygen #1] Oxygen Flow Rate (L/min) 8 Oxygen Delivery Method Nasal Cannula Weight: 74.3 kg Body Mass Index (BMI) 31.2 Intake & Output: Intake and Output for Last 24 Hours 07/30/21 07/31/21 08/01/21 23:59 23:59 23:59 Intake Total 820 / 820 1680 / 1680 1150 / 1150 Output Total 2850 / 2850 800 / 800 Balance 820 / 320 -1170 / -1170 350 / 350 Lab / Micro Data Result Diagrams: 08/01/21 06:50 08/01/21 06:50 Labs: Laboratory Results - last 24 hr 08/01/21 06:50: WBC 9.3, RBC 4.51, Hgb 13.9, Hct 39.9, MCV 88.5, MCH 30.8, MCHC 34.8, RDW Std Deviation 43.2, RDW Coeff of Keri 13.2, Plt Count 250, MPV 12.2 H, Immature Gran % (Auto) 1.500 H, Neut % (Auto) 75.9 H, Lymph % (Auto) 11.6 L, [place] % (Auto) 10.2 H, Eos % (Auto) 0.5, Baso % (Auto) 0.3, Absolute Neuts (auto) 7.1, Absolute Lymphs (auto) 1.08, Nucleated RBC % 1.2, Reactive Lymphocytes RARE 08/01/21 06:50: Sodium 138, Potassium 4.9, Chloride 109 H, Carbon Dioxide 21.0, Anion Gap 8, BUN 41 H, Creatinine 1.09 H, Estim Creat Clear Calc 31.06, Est GFR (MDRD) Af Amer 62, Est GFR (MDRD) Non-Af 51 L, BUN/Creatinine Ratio 37.6 H, Glucose 110 H, Calcium 9.6, Total Bilirubin 0.60, AST 72 H, ALT 50, Alkaline Phosphatase 62, Total Protein 7.6, Albumin 2.6 L, Globulin 5.0 H, Albumin/Globulin Ratio 0.5 L Micro: Microbiology 07/30/21 07:25 Urine, Clean Catch Urine Culture - Final Mixed Gram Positive Organisms 07/30/21 08:43 Blood Culture (Wb) - Anticubital Right Blood Culture - Preliminary No growth in 48 hours. 07/30/21 07:25 Urine, Clean Catch Streptococcus pneumoniae Antigen (M - Final 07/30/21 07:25 Urine, Clean Catch Legionella Antigen - Final 07/30/21 07:15 Stool Stool Occult Blood (CONSUELO) - Final Physical Exam Narrative Physical exam: General: Alert, Oriented x3, Cooperative, No apparent distress, appears frail, on 4 L oxygen HEENT: Atraumatic Oral: Moist Mucosa Neck: Supple Lungs: Diminished to auscultation Cardiovascular: HS I+II, regular, no murmurs Abdomen: Bowel Sounds Present, Soft, Non Tender Extremities: No edema Assessment & Plan Assessment/Plan (1) Pneumonia due to COVID-19 virus: (2) Acute respiratory failure with hypoxia: (3) Hypophosphatemia: PLAN: 1. Acute hypoxic respiratory failure secondary to acute COVID-19 pneumonia, slightly worsened Currently on 8 L of oxygen Continue remdesivir and Decadron 2. Hypophosphatemia, replace, recheck in a.m. 3. Rest of chronic medical conditions including CAD, status post stent, CHF, GERD remained stable Continue on Lasix and potassium Charges/Coding Visit Charges Inpatient E&M: 15331 Subs Hosp L2
[2021-08-01] MEDS: 0.9% Saline Lock 10 ML Syringe IV (21:23)
[2021-08-01] MEDS: guaiFENesin 10 ML UDC (200MG/10ML) 20 ML PO (21:27)
[2021-08-02] VITALS (13 sets, daily range): BP systolic 102–127; BP diastolic 54–67; PULSE 61–74; RESP 16–20; TEMP 36.4–37; O2SAT 92–95
[2021-08-02 07:24] LABS: Absolute Lymphocyte Count 1.57 X10^3/uL (0.83-4.51); Absolute Neutrophil Count 7.3 X10^3/uL (2.0-7.7); Basophil# 0.05 X10^3/uL; Basophil% 0.5 % (0-1); Hematocrit 45.8 % (37-47); Hemoglobin 15.3 g/dL (12.0-15.0); Lymphocyte # 1.57 X10^3/ul (0.83-4.51); Lymphocyte % 15.8 % (19-41); Mean Corp Hgb Conc 33.4 g/dL (32-36); Mean Corpuscular Hgb 30.2 pg (27.0-32.0); Mean Corpuscular Volume 90.3 fL (81-99); Mean Platelet Vol. 10.9 fl (6.2-12.0); Monocyte# 0.87 X10^3/uL; Monocyte% 8.8 % (0-10); NRBC Flagged by Analyzer 0 % (0-5); Neutrophil # 7.31 X10^3/uL (2.7-7.7); Neutrophil % 73.5 % (47-70); POSITIVE MORPHOLOGY YES; Platelet Count 392 K/mm3 (150-450); RBC Distribution Width CV 12.9 % (11.6-14.6); RBC Distribution Width SD 42.8 fl (35.1-43.9); Red Blood Count 5.07 M/mm3 (4.2-5.4); White Blood Count 9.9 K/mm3 (4.4-11.0)
[2021-08-02 07:27] LABS: Differential Indicated SCAN CRITERIA MET
[2021-08-02 08:06] LABS: ALB/GLOB Ratio 0.5 RATIO (0.9-2.4); AST(SGOT) 79 U/L (15-37); Alanine Aminotransfer ALT/SGPT 76 U/L (13-56); Albumin, Serum 2.8 g/dL (3.2-5.0); Alkaline Phosphatase 63 U/L (45-117); Anion Gap 9 (5-15); BUN 44 mg/dL (7-18); BUN/Creat Ratio 41.1 RATIO (10-20); Calcium,Total 9.7 mg/dL (8.5-10.1); Chloride 107 mmol/L (98-107); Creatinine, Serum 1.07 mg/dL (0.55-1.02); EST Glomerular Filtration Rate 52 mL/min (>60); Est Glom Filt Rate - Afr Amer 63 mL/min (>60); Estimated Creatinine Clearance 31.64 ml/min; Globulin 5.1 g/dL (2.2-4.2); Glucose 109 mg/dL (74-106); Phosphorus 3.3 mg/dL (2.5-4.9); Potassium 4.9 mmol/L (3.5-5.1); Protein, Total 7.9 g/dL (6.4-8.2); Sodium Level 138 mmol/L (136-145)
[2021-08-02] MEDS: dexAMETHasone 4 MG Tablet 6 MG PO (10:41)
[2021-08-02] MEDS: Potassium Chloride Oral Tablet 20 MEQ 40 MEQ PO ×2 (10:41→22:36)
[2021-08-02] MEDS: Furosemide 40 MG Tablet PO ×2 (10:41→16:12)
[2021-08-02] MEDS: Enoxaparin 40 MG/0.4 ML Syringe SC ×2 (10:41→22:36)
[2021-08-02] MEDS: 0.9% Saline Lock 10 ML Syringe IV ×3 (10:42→22:36)
--- NOTE | 2021-08-02 12:47 | NURSING ---
patient refused to get up to chair at this time. she did use her i/s while laying in bed. refused lunch. 02 increased to 10L. sp02 90-92%. will attempt to get to chair later this afternoon.
--- NOTE | 2021-08-02 15:39 | PN.HOSP_ITS ---
Subjective Subjective Follow-up on acute hypoxic respiratory failure/acute COVID-19 pneumonia: Patient was seen and examined. Her oxygen requirements has worsened; currently on 10 L oxygen. Denies any fever or chills. Objective Data Objective Data Vital Signs: Vital Signs Temp Pulse Resp BP Pulse Ox 98 F 73 16 127/67 H 92 08/02/21 12:45 08/02/21 14:41 08/02/21 12:45 08/02/21 12:45 08/02/21 12:45 Oxygen Flow Rate (L/min) [At 5 REST with Oxygen] Oxygen Flow Rate (L/min) [ 3 AMBULATING with Oxygen #2] Oxygen Flow Rate (L/min) [ 2 AMBULATING with Oxygen #1] Oxygen Flow Rate (L/min) 10 Oxygen Delivery Method High Flow Weight: 74.3 kg Body Mass Index (BMI) 31.2 Intake & Output: Intake and Output for Last 24 Hours 07/31/21 08/01/21 08/02/21 23:59 23:59 23:59 Intake Total 1680 / 1680 1550 / 1550 750 / 750 Output Total 2850 / 2850 1450 / 1750 1350 / 1350 Balance -1170 / -1170 100 / -200 -600 / -600 Lab / Micro Data Result Diagrams: 08/02/21 07:09 08/02/21 07:09 Labs: Laboratory Results - last 24 hr 08/02/21 07:09: WBC 9.9, RBC 5.07, Hgb 15.3 H, Hct 45.8, MCV 90.3, MCH 30.2, MCHC 33.4, RDW Std Deviation 42.8, RDW Coeff of Keri 12.9, Plt Count 392, MPV 10.9, Immature Gran % (Auto) 1.400 H, Neut % (Auto) 73.5 H, Lymph % (Auto) 15.8 L, [place] % (Auto) 8.8, Eos % (Auto) 0.0, Baso % (Auto) 0.5, Absolute Neuts (auto) 7.3, Absolute Lymphs (auto) 1.57, Nucleated RBC % 0 08/02/21 07:09: Sodium 138, Potassium 4.9, Chloride 107, Carbon Dioxide 22.0, Anion Gap 9, BUN 44 H, Creatinine 1.07 H, Estim Creat Clear Calc 31.64, Est GFR (MDRD) Af Amer 63, Est GFR (MDRD) Non-Af 52 L, BUN/Creatinine Ratio 41.1 H, Glucose 109 H, Calcium 9.7, Phosphorus 3.3, Total Bilirubin 0.90, AST 79 H, ALT 76 H, Alkaline Phosphatase 63, Total Protein 7.9, Albumin 2.8 L, Globulin 5.1 H, Albumin/Globulin Ratio 0.5 L Micro: Microbiology 07/30/21 07:25 Urine, Clean Catch Urine Culture - Final Mixed Gram Positive Organisms 07/30/21 08:43 Blood Culture (Wb) - Anticubital Right Blood Culture - Preliminary No growth in 48 hours. 07/30/21 07:25 Urine, Clean Catch Streptococcus pneumoniae Antigen (M - Final 07/30/21 07:25 Urine, Clean Catch Legionella Antigen - Final 07/30/21 07:15 Stool Stool Occult Blood (CONSUELO) - Final Physical Exam Narrative Physical exam: General: Alert, Oriented x3, Cooperative, No apparent distress, appears frail, on 4 L oxygen HEENT: Atraumatic Oral: Moist Mucosa Neck: Supple Lungs: Diminished to auscultation Cardiovascular: HS I+II, regular, no murmurs Abdomen: Bowel Sounds Present, Soft, Non Tender Extremities: No edema Assessment & Plan Assessment/Plan (1) Pneumonia due to COVID-19 virus: (2) Acute respiratory failure with hypoxia: (3) Hypophosphatemia: PLAN: 1. Acute hypoxic respiratory failure secondary to acute COVID-19 pneumonia, slightly worsened Currently on 10L of oxygen Continue remdesivir and Decadron Trial of Lasix 40mg IV x1 2. Hypophosphatemia, replaced, recheck in a.m. 3. Rest of chronic medical conditions including CAD, status post stent, CHF, GERD remained stable Continue on Lasix and potassium Charges/Coding Visit Charges Inpatient E&M: 83793 Subs Hosp L2
--- NOTE | 2021-08-02 15:47 | NURSING ---
Attempted to get pt oob again and she sat on the edge and states she can't do this and laid back down in the bed. Encouragement and support provided but patient continues to refuse.
[2021-08-02] MEDS: Furosemide 20 MG/2 ML VIAL IV (16:12)
[2021-08-03] VITALS (14 sets, daily range): BP systolic 110–133; BP diastolic 59–72; PULSE 70–87; RESP 18–20; TEMP 36.5–36.8; O2SAT 91–95
[2021-08-03 06:46] LABS: Absolute Lymphocyte Count 1.42 X10^3/uL (0.83-4.51); Absolute Neutrophil Count 6.7 X10^3/uL (2.0-7.7); Basophil# 0.13 X10^3/uL; Basophil% 1.4 % (0-1); Differential Indicated SCAN CRITERIA MET; Eosinophil# 0.02 X10^3/uL; Eosinophils% 0.2 % (0-5); Hematocrit 51.7 % (37-47); Hemoglobin 16.8 g/dL (12.0-15.0); Lymphocyte # 1.42 X10^3/ul (0.83-4.51); Lymphocyte % 14.9 % (19-41); Mean Corp Hgb Conc 32.5 g/dL (32-36); Mean Corpuscular Hgb 29.8 pg (27.0-32.0); Mean Corpuscular Volume 91.7 fL (81-99); Mean Platelet Vol. 10.4 fl (6.2-12.0); Monocyte# 0.97 X10^3/uL; Monocyte% 10.2 % (0-10); Neutrophil # 6.65 X10^3/uL (2.7-7.7); POSITIVE MORPHOLOGY YES; Platelet Count 434 K/mm3 (150-450); RBC Distribution Width CV 12.9 % (11.6-14.6); RBC Distribution Width SD 43.8 fl (35.1-43.9); Red Blood Count 5.64 M/mm3 (4.2-5.4); White Blood Count 9.5 K/mm3 (4.4-11.0)
[2021-08-03 07:03] LABS: Differential Comment SCANNED
[2021-08-03 07:04] LABS: Atypical Lymphocyte RARE %
[2021-08-03 07:17] LABS: ALB/GLOB Ratio 0.4 RATIO (0.9-2.4); AST(SGOT) 55 U/L (15-37); Alanine Aminotransfer ALT/SGPT 63 U/L (13-56); Albumin, Serum 2.5 g/dL (3.2-5.0); Alkaline Phosphatase 68 U/L (45-117); Anion Gap 8 (5-15); BUN 49 mg/dL (7-18); BUN/Creat Ratio 44.5 RATIO (10-20); Calcium,Total 9.8 mg/dL (8.5-10.1); Chloride 107 mmol/L (98-107); EST Glomerular Filtration Rate 51 mL/min (>60); Est Glom Filt Rate - Afr Amer 61 mL/min (>60); Estimated Creatinine Clearance 30.78 ml/min; Globulin 5.7 g/dL (2.2-4.2); Glucose 109 mg/dL (74-106); Potassium 5.7 mmol/L (3.5-5.1); Protein, Total 8.2 g/dL (6.4-8.2); Sodium Level 135 mmol/L (136-145)
[2021-08-03] MEDS: Enoxaparin 40 MG/0.4 ML Syringe SC (10:04)
[2021-08-03] MEDS: 0.9% Saline Lock 10 ML Syringe IV (10:05)
[2021-08-03] MEDS: dexAMETHasone 4 MG Tablet 6 MG PO (10:05)
[2021-08-03] MEDS: Potassium Chloride Oral Tablet 20 MEQ 40 MEQ PO (10:05)
[2021-08-03] MEDS: Furosemide 40 MG Tablet PO ×2 (10:05→17:17)
--- NOTE | 2021-08-03 10:39 | PCM.PN.HOSP ---
Subjective Subjective Follow-up on acute hypoxic respiratory failure/acute COVID-19 pneumonia: Patient was seen and examined. Patient remains on 10 L of oxygen. She is now motivated to do anything. She complains of generalized weakness. When asked if she was depressed, she stated she was depressed but did not want any medications. I asked if I can discuss her care with some family. She said not to discuss with her son. Objective Data Objective Data Vital Signs: Vital Signs Temp Pulse Resp BP Pulse Ox 98.3 F 82 20 H 115/59 L 95 08/03/21 10:08 08/03/21 10:08 08/03/21 10:08 08/03/21 10:08 08/03/21 10:08 Oxygen Flow Rate (L/min) [At 5 REST with Oxygen] Oxygen Flow Rate (L/min) [ 3 AMBULATING with Oxygen #2] Oxygen Flow Rate (L/min) [ 2 AMBULATING with Oxygen #1] Oxygen Flow Rate (L/min) 10 Oxygen Delivery Method High Flow Weight: 74.3 kg Body Mass Index (BMI) 31.2 Intake & Output: Intake and Output for Last 24 Hours 08/01/21 08/02/21 08/03/21 23:59 23:59 23:59 Intake Total 1550 / 1550 750 / 750 Output Total 1450 / 1750 2100 / 2100 150 / 150 Balance 100 / -200 -1350 / -1350 -150 / -150 Lab / Micro Data Result Diagrams: 08/03/21 06:30 08/03/21 06:30 Labs: Laboratory Results - last 24 hr 08/03/21 06:30: WBC 9.5, RBC 5.64 H, Hgb 16.8 H, Hct 51.7 H, MCV 91.7, MCH 29.8, MCHC 32.5, RDW Std Deviation 43.8, RDW Coeff of Keri 12.9, Plt Count 434, MPV 10.4, Immature Gran % (Auto) 3.300 H, Neut % (Auto) 70.0, Lymph % (Auto) 14.9 L, [place] % (Auto) 10.2 H, Eos % (Auto) 0.2, Baso % (Auto) 1.4 H, Absolute Neuts (auto) 6.7, Absolute Lymphs (auto) 1.42, Nucleated RBC % 2.0, Differential Comment SCANNED, Atypical Lymphocytes RARE 08/03/21 06:30: Sodium 135 L, Potassium 5.7 H, Chloride 107, Carbon Dioxide 20.0 L, Anion Gap 8, BUN 49 H, Creatinine 1.10 H, Estim Creat Clear Calc 30.78, Est GFR (MDRD) Af Amer 61, Est GFR (MDRD) Non-Af 51 L, BUN/Creatinine Ratio 44.5 H, Glucose 109 H, Calcium 9.8, Total Bilirubin 1.10 H, AST 55 H, ALT 63 H, Alkaline Phosphatase 68, Total Protein 8.2, Albumin 2.5 L, Globulin 5.7 H, Albumin/Globulin Ratio 0.4 L Micro: Microbiology 07/30/21 07:25 Urine, Clean Catch Urine Culture - Final Mixed Gram Positive Organisms 07/30/21 08:43 Blood Culture (Wb) - Anticubital Right Blood Culture - Preliminary No growth in 48 hours. 07/30/21 07:25 Urine, Clean Catch Streptococcus pneumoniae Antigen (M - Final 07/30/21 07:25 Urine, Clean Catch Legionella Antigen - Final 07/30/21 07:15 Stool Stool Occult Blood (CONSUELO) - Final Physical Exam Narrative Physical exam: General: Alert, Oriented x3, Cooperative, depressed, appears frail, on 10 L oxygen HEENT: Atraumatic Oral: Moist Mucosa Neck: Supple Lungs: Diminished to auscultation Cardiovascular: HS I+II, regular, no murmurs Abdomen: Bowel Sounds Present, Soft, Non Tender Extremities: No edema Assessment & Plan Assessment/Plan (1) Pneumonia due to COVID-19 virus: (2) Acute respiratory failure with hypoxia: (3) Hypophosphatemia: PLAN: 1. Acute hypoxic respiratory failure secondary to acute COVID-19 pneumonia, slightly worsened Remains on 10L of oxygen Continue remdesivir and Decadron Trial of Lasix 40mg IV x1 2. Hypokalemia secondary to oral supplementation DC potassium 3. Hypophosphatemia, replaced, recheck in a.m. 4. Rest of chronic medical conditions including CAD, status post stent, CHF, GERD - remained stable Continue on Lasix Charges/Coding Visit Charges Inpatient E&M: 73596 Subs Hosp L2
--- NOTE | 2021-08-03 10:55 | CASEMGMT ---
Social Work Note SW received consult that pt is feeling down regarding recovery from COVID. SW in to speak with pt. SW introduced self and role at [facility]. Pt is alert and orientated, engaged in conversation, presented with flat affect. Pt states that she doesn't know if she is going to make it out of the hospital. SW offered support to pt, informed pt that she still has plenty of time to get better and to fight COVID. Pt states she wants to fight COVID and get better as she has things she still wants to do. 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 Pt states she also worked at [employer]. Pt states again she just likes to help people. Pt states she would like to get back to being able to work again. SW informed pt that that is a good goal to have but pt needs to recover first from COVID. Pt states about 20 years ago, she had Ovarian cancer with mets and she was told she would only survive 6 months. Pt states she was able to fight that but fighting COVID is different. Pt states she just feels she is not getting better. SW spoke with pt about COVID and how recovery can be long but it can be worth it. Pt states that her family is good support. Pt states that she lives with her son and talks to her son everyday. Pt states her other family members have been calling in to speak with her too. SW spent much time with pt offering support and encouraging pt to keep working to get better. SW also spoke with pt about depression. Pt denied any history of Anxiety/Depression/Mental Health. SW asked pt if she thinks pt is depressed since being in the hospital and pt states maybe. Pt denied any suicidal thoughts/plans/ideations. Pt denied any additional needs or concerns at this time. Maya Pérez DIRECTOR OF OPERATIONS HOME HEALTH, [employer]ANC[employer]WORK[employer]
[2021-08-03] MEDS: Furosemide 20 MG/2 ML VIAL IV (12:09)
[2021-08-04] VITALS (11 sets, daily range): BP systolic 100–133; BP diastolic 72–84; PULSE 66–88; RESP 18–20; TEMP 36.3–36.5; O2SAT 91–94
[2021-08-04] MEDS: Enoxaparin 40 MG/0.4 ML Syringe SC ×3 (00:32→21:05)
[2021-08-04] MEDS: dexAMETHasone 4 MG Tablet 6 MG PO (09:53)
[2021-08-04] MEDS: Furosemide 40 MG Tablet PO ×2 (09:53→17:25)
--- NOTE | 2021-08-04 12:32 | PCM.PN.HOSP ---
Subjective Subjective Follow-up on acute hypoxic respiratory failure/acute COVID-19 pneumonia: Patient was seen and examined. Seen lying in bed. She has not been wanting to move out of bed much according to nursing. Patient does not appear to be motivated. She remains on 10 L of oxygen. Objective Data Objective Data Vital Signs: Vital Signs Temp Pulse Resp BP Pulse Ox 97.7 F L 80 18 100/73 92 08/04/21 09:57 08/04/21 09:57 08/04/21 09:57 08/04/21 09:57 08/04/21 10:25 Oxygen Flow Rate (L/min) [At 5 REST with Oxygen] Oxygen Flow Rate (L/min) [ 3 AMBULATING with Oxygen #2] Oxygen Flow Rate (L/min) [ 2 AMBULATING with Oxygen #1] Oxygen Flow Rate (L/min) 10 Oxygen Delivery Method Nasal Cannula Weight: 74.3 kg Body Mass Index (BMI) 31.2 Intake & Output: Intake and Output for Last 24 Hours 08/02/21 08/03/21 08/04/21 23:59 23:59 23:59 Intake Total 750 / 750 1150 / 1150 Output Total 2100 / 2100 1100 / 1100 300 / 300 Balance -1350 / -1350 50 / 50 -300 / -300 Lab / Micro Data Result Diagrams: 08/03/21 06:30 08/04/21 14:25 Micro: Microbiology 07/30/21 08:43 Blood Culture (Wb) - Anticubital Right Blood Culture - Final No growth in 5 days. 07/30/21 07:25 Urine, Clean Catch Urine Culture - Final Mixed Gram Positive Organisms 07/30/21 07:25 Urine, Clean Catch Streptococcus pneumoniae Antigen (M - Final 07/30/21 07:25 Urine, Clean Catch Legionella Antigen - Final 07/30/21 07:15 Stool Stool Occult Blood (CONSUELO) - Final Physical Exam Narrative Physical exam: General: Alert, Oriented x3, Cooperative, depressed, appears frail, on 10 L oxygen HEENT: Atraumatic Oral: Moist Mucosa Neck: Supple Lungs: Diminished to auscultation Cardiovascular: HS I+II, regular, no murmurs Abdomen: Bowel Sounds Present, Soft, Non Tender Extremities: No edema Assessment & Plan Assessment/Plan (1) Pneumonia due to COVID-19 virus: (2) Acute respiratory failure with hypoxia: (3) Hypophosphatemia: PLAN: 1. Acute hypoxic respiratory failure secondary to acute COVID-19 pneumonia, remains worse Remains on 10L of oxygen Continue Remdesivir and Decadron 2. Hyperkalemia secondary to oral supplementation, resolved Off potassium, potassium 4.0. 3. Hypophosphatemia, replaced, recheck in a.m. 4. Rest of chronic medical conditions including CAD, status post stent, CHF, GERD - remained stable Continue on Lasix Charges/Coding Visit Charges Inpatient E&M: 64189 Subs Hosp L2
[2021-08-04 14:59] LABS: ALB/GLOB Ratio 0.5 RATIO (0.9-2.4); AST(SGOT) 24 U/L (15-37); Alanine Aminotransfer ALT/SGPT 42 U/L (13-56); Albumin, Serum 2.8 g/dL (3.2-5.0); Alkaline Phosphatase 68 U/L (45-117); Anion Gap 11 (5-15); BUN 59 mg/dL (7-18); BUN/Creat Ratio 41.3 RATIO (10-20); Calcium,Total 9.9 mg/dL (8.5-10.1); Chloride 103 mmol/L (98-107); Creatinine, Serum 1.43 mg/dL (0.55-1.02); EST Glomerular Filtration Rate 38 mL/min (>60); Est Glom Filt Rate - Afr Amer 45 mL/min (>60); Estimated Creatinine Clearance 23.68 ml/min; Globulin 5.3 g/dL (2.2-4.2); Glucose 206 mg/dL (74-106); Magnesium 2.2 mg/dL (1.6-2.6); Phosphorus 3.6 mg/dL (2.5-4.9); Protein, Total 8.1 g/dL (6.4-8.2); Sodium Level 135 mmol/L (136-145)
[2021-08-04] MEDS: 0.9% Saline Lock 10 ML Syringe IV (21:06)
[2021-08-05] VITALS (9 sets, daily range): BP systolic 108–125; BP diastolic 52–65; PULSE 77–87; RESP 18–20; TEMP 36.4–36.9; O2SAT 94–96
[2021-08-05 06:02] LABS: Hemoglobin 16.3 g/dL (12.0-15.0); Mean Corpuscular Hgb 30.4 pg (27.0-32.0); Mean Corpuscular Volume 89.4 fL (81-99); POSITIVE COUNT YES; POSITIVE MORPHOLOGY YES; Platelet Count 513 K/mm3 (150-450); RBC Distribution Width CV 12.5 % (11.6-14.6); RBC Distribution Width SD 40.9 fl (35.1-43.9); Red Blood Count 5.37 M/mm3 (4.2-5.4); White Blood Count 14.9 K/mm3 (4.4-11.0)
[2021-08-05 06:11] LABS: Differential Indicated MANUAL DIFF
[2021-08-05 06:41] LABS: ALB/GLOB Ratio 0.5 RATIO (0.9-2.4); AST(SGOT) 20 U/L (15-37); Alanine Aminotransfer ALT/SGPT 37 U/L (13-56); Albumin, Serum 2.7 g/dL (3.2-5.0); Alkaline Phosphatase 67 U/L (45-117); Anion Gap 8 (5-15); BUN 63 mg/dL (7-18); Calcium,Total 10.1 mg/dL (8.5-10.1); Chloride 100 mmol/L (98-107); EST Glomerular Filtration Rate 38 mL/min (>60); Est Glom Filt Rate - Afr Amer 47 mL/min (>60); Estimated Creatinine Clearance 24.18 ml/min; Globulin 5.2 g/dL (2.2-4.2); Glucose 117 mg/dL (74-106); Magnesium 2.4 mg/dL (1.6-2.6); Phosphorus 4.5 mg/dL (2.5-4.9); Potassium 4.5 mmol/L (3.5-5.1); Protein, Total 7.9 g/dL (6.4-8.2); Sodium Level 133 mmol/L (136-145)
[2021-08-05 06:57] LABS: Total Cells Counted 100 (MANUAL DIFF)
[2021-08-05 06:59] LABS: Lymphocyte 16 % (19-41); Metamyelocyte 1 % (0-1); Monocyte 4 % (0-10); Myelocyte 1 % (0-0); Neutrophil-Band 1 % (0-5); Neutrophil-Segmented 77 % (47-70)
[2021-08-05 07:00] LABS: Absolute Lymphocyte Count 2.38 X10^3/uL (0.83-4.51); Absolute Neutrophil Count 11.6 X10^3/uL (2.0-7.7); Lymphocyte # 2.38 X10^3/ul (0.83-4.51); Neutrophil # 11.61 X10^3/uL (2.7-7.7); Platelet Estimate MOD INC (ADEQ); Red Cell Morphology NORM C+C NORMAL (NORM C&C)
[2021-08-05] MEDS: dexAMETHasone 4 MG Tablet 6 MG PO (09:26)
[2021-08-05] MEDS: Furosemide 40 MG Tablet PO ×2 (09:26→16:39)
[2021-08-05] MEDS: Enoxaparin 40 MG/0.4 ML Syringe SC ×2 (09:27→22:31)
--- NOTE | 2021-08-05 10:56 | PN.HOSP_ITS ---
Subjective Subjective Follow-up on acute hypoxic respiratory failure/acute COVID-19 pneumonia: Patient was seen and examined. Denies any new complaints. Currently on 6 L of oxygen Objective Data Objective Data Vital Signs: Vital Signs Temp Pulse Resp BP Pulse Ox 97.6 F L 87 20 H 111/65 95 08/05/21 09:23 08/05/21 09:23 08/05/21 09:23 08/05/21 09:23 08/05/21 09:50 Oxygen Flow Rate (L/min) [At 5 REST with Oxygen] Oxygen Flow Rate (L/min) [ 3 AMBULATING with Oxygen #2] Oxygen Flow Rate (L/min) [ 2 AMBULATING with Oxygen #1] Oxygen Flow Rate (L/min) 6 Oxygen Delivery Method Nasal Cannula Weight: 74.3 kg Body Mass Index (BMI) 31.2 Intake & Output: Intake and Output for Last 24 Hours 08/03/21 08/04/21 08/05/21 23:59 23:59 23:59 Intake Total 1150 / 1150 420 / 420 Output Total 1100 / 1100 800 / 1000 450 / 450 Balance 50 / 50 -380 / -580 -450 / -450 Lab / Micro Data Result Diagrams: 08/05/21 05:20 08/05/21 05:20 Labs: Laboratory Results - last 24 hr 08/04/21 14:25: Sodium 135 L, Potassium 4.0, Chloride 103, Carbon Dioxide 21.0, Anion Gap 11, BUN 59 H, Creatinine 1.43 H, Estim Creat Clear Calc 23.68, Est GFR (MDRD) Af Amer 45 L, Est GFR (MDRD) Non-Af 38 L, BUN/Creatinine Ratio 41.3 H, Glucose 206 H, Calcium 9.9, Phosphorus 3.6, Magnesium 2.2, Total Bilirubin 0.90, AST 24, ALT 42, Alkaline Phosphatase 68, Total Protein 8.1, Albumin 2.8 L, Globulin 5.3 H, Albumin/Globulin Ratio 0.5 L 08/05/21 05:20: WBC 14.9 H, RBC 5.37, Hgb 16.3 H, Hct 48.0 H, MCV 89.4, MCH 30.4, MCHC 34.0, RDW Std Deviation 40.9, RDW Coeff of Keri 12.5, Plt Count 513 H, MPV 11.0, Neut % (Auto) Not Reportable, Absolute Neuts (auto) 11.6 H, Absolute Lymphs (auto) 2.38, Total Counted 100, Neutrophils % (Manual) 77 H, Band Neutrophils % 1, Lymphocytes % (Manual) 16 L, Monocytes % (Manual) 4, Metamyelocytes % 1, Myelocytes % 1 H, Diff Path Review December foll, Platelet Estimate MOD INC, RBC Morphology NORM C+C 08/05/21 05:20: Sodium 133 L, Potassium 4.5, Chloride 100, Carbon Dioxide 25.0, Anion Gap 8, BUN 63 H, Creatinine 1.40 H, Estim Creat Clear Calc 24.18, Est GFR (MDRD) Af Amer 47 L, Est GFR (MDRD) Non-Af 38 L, BUN/Creatinine Ratio 45.0 H, Glucose 117 H, Calcium 10.1, Phosphorus 4.5, Magnesium 2.4, Total Bilirubin 1.10 H, AST 20, ALT 37, Alkaline Phosphatase 67, Total Protein 7.9, Albumin 2.7 L, G lobulin 5.2 H, Albumin/Globulin Ratio 0.5 L Micro: Microbiology 07/30/21 08:43 Blood Culture (Wb) - Anticubital Right Blood Culture - Final No growth in 5 days. 07/30/21 07:25 Urine, Clean Catch Urine Culture - Final Mixed Gram Positive Organisms 07/30/21 07:25 Urine, Clean Catch Streptococcus pneumoniae Antigen (M - Final 07/30/21 07:25 Urine, Clean Catch Legionella Antigen - Final 07/30/21 07:15 Stool Stool Occult Blood (CONSUELO) - Final Physical Exam Narrative Physical exam: General: Alert, Oriented x3, Cooperative, depressed, appears frail, on 6 L oxygen HEENT: Atraumatic Oral: Moist Mucosa Neck: Supple Lungs: Diminished to auscultation Cardiovascular: HS I+II, regular, no murmurs Abdomen: Bowel Sounds Present, Soft, Non Tender Extremities: No edema Assessment & Plan Assessment/Plan (1) Pneumonia due to COVID-19 virus: (2) Acute respiratory failure with hypoxia: (3) Hypophosphatemia: PLAN: 1. Acute hypoxic respiratory failure secondary to acute COVID-19 pneumonia, remains worse Remains on 10L of oxygen Completed remdesivir Continue on Decadron 2. Hyperkalemia secondary to oral supplementation, resolved 3. Hypophosphatemia, replaced, recheck in a.m. 4. Rest of chronic medical conditions including CAD, status post stent, CHF, GERD - remained stable Continue on Lasix 5. Debility related to the above, PT and OT to evaluate and treat Charges/Coding Visit Charges Inpatient E&M: 12136 Subs Hosp L2
[2021-08-05] MEDS: 0.9% Saline Lock 10 ML Syringe IV (22:31)
[2021-08-06] VITALS (10 sets, daily range): BP systolic 113–117; BP diastolic 56–65; PULSE 69–92; RESP 16–18; TEMP 36.3–36.9; O2SAT 2–95
[2021-08-06] MEDS: dexAMETHasone 4 MG Tablet 6 MG PO (08:07)
[2021-08-06] MEDS: Enoxaparin 40 MG/0.4 ML Syringe SC ×2 (08:07→21:15)
[2021-08-06] MEDS: Furosemide 40 MG Tablet PO ×2 (08:07→17:03)
--- NOTE | 2021-08-06 11:52 | PCM.PN.HOSP ---
Subjective Subjective Follow-up on acute hypoxic respiratory failure/acute COVID-19 pneumonia: Patient was seen and examined. Denies any new complaints. Remains on 2 L of oxygen Objective Data Objective Data Vital Signs: Vital Signs Temp Pulse Resp BP Pulse Ox 97.3 F L 75 18 116/56 L 94 08/06/21 08:10 08/06/21 08:10 08/06/21 08:10 08/06/21 08:10 08/06/21 08:15 Oxygen Flow Rate (L/min) [At 5 REST with Oxygen] Oxygen Flow Rate (L/min) [ 88 AMBULATING with Oxygen #2] Oxygen Flow Rate (L/min) [ 89 AMBULATING with Oxygen #1] Oxygen Flow Rate (L/min) 2 Oxygen Delivery Method Room Air Weight: 74.3 kg Body Mass Index (BMI) 31.2 Intake & Output: Intake and Output for Last 24 Hours 08/04/21 08/05/21 08/06/21 23:59 23:59 23:59 Intake Total 420 / 420 1950 / 1950 Output Total 800 / 1000 1225 / 1225 400 / 400 Balance -380 / -580 725 / 725 -400 / -400 Lab / Micro Data Result Diagrams: 08/05/21 05:20 08/05/21 05:20 Micro: Microbiology 07/30/21 08:43 Blood Culture (Wb) - Anticubital Right Blood Culture - Final No growth in 5 days. 07/30/21 07:25 Urine, Clean Catch Urine Culture - Final Mixed Gram Positive Organisms 07/30/21 07:25 Urine, Clean Catch Streptococcus pneumoniae Antigen (M - Final 07/30/21 07:25 Urine, Clean Catch Legionella Antigen - Final 07/30/21 07:15 Stool Stool Occult Blood (CONSUELO) - Final Physical Exam Narrative Physical exam: General: Alert, Oriented x3, Cooperative, depressed, appears frail, on 2 L oxygen HEENT: Atraumatic Oral: Moist Mucosa Neck: Supple Lungs: Diminished to auscultation Cardiovascular: HS I+II, regular, no murmurs Abdomen: Bowel Sounds Present, Soft, Non Tender Extremities: No edema Assessment & Plan Assessment/Plan (1) Pneumonia due to COVID-19 virus: (2) Acute respiratory failure with hypoxia: (3) Hypophosphatemia: PLAN: 1. Acute hypoxic respiratory failure secondary to acute COVID-19 pneumonia Oxygen has improved; now on 2 L of oxygen, down from 10L Completed remdesivir Continue on Decadron 2. Hyperkalemia secondary to oral supplementation, resolved 3. Hypophosphatemia, replaced, recheck in a.m. 4. Rest of chronic medical conditions including CAD, status post stent, CHF, GERD - remained stable Continue on Lasix 5. Debility related to the above, possible dc in am if improved with therapy. Charges/Coding Visit Charges Inpatient E&M: 40289 Subs Hosp L2
[2021-08-06] MEDS: MELATONIN 3 MG TABLET PO (21:38)
[2021-08-07 03:40] VITALS: BP 116/60; PULSE 65; RESP 18; TEMP 36.8; O2SAT 93
[2021-08-07 06:08] LABS: Hematocrit 41.3 % (37-47); Hemoglobin 14.3 g/dL (12.0-15.0); Mean Corp Hgb Conc 34.6 g/dL (32-36); Mean Corpuscular Hgb 30.4 pg (27.0-32.0); Mean Corpuscular Volume 87.9 fL (81-99); Mean Platelet Vol. 10.9 fl (6.2-12.0); POSITIVE COUNT YES; POSITIVE DIFFERENTIAL YES; POSITIVE MORPHOLOGY YES; Platelet Count 466 K/mm3 (150-450); RBC Distribution Width CV 12.1 % (11.6-14.6); RBC Distribution Width SD 38.9 fl (35.1-43.9); White Blood Count 17.1 K/mm3 (4.4-11.0)
[2021-08-07 06:38] LABS: ALB/GLOB Ratio 0.6 RATIO (0.9-2.4); AST(SGOT) 16 U/L (15-37); Alanine Aminotransfer ALT/SGPT 27 U/L (13-56); Albumin, Serum 2.5 g/dL (3.2-5.0); Alkaline Phosphatase 53 U/L (45-117); Anion Gap 9 (5-15); BUN 47 mg/dL (7-18); BUN/Creat Ratio 45.6 RATIO (10-20); Chloride 99 mmol/L (98-107); Creatinine, Serum 1.03 mg/dL (0.55-1.02); EST Glomerular Filtration Rate 55 mL/min (>60); Est Glom Filt Rate - Afr Amer 66 mL/min (>60); Estimated Creatinine Clearance 32.87 ml/min; Globulin 4.4 g/dL (2.2-4.2); Glucose 101 mg/dL (74-106); Potassium 3.2 mmol/L (3.5-5.1); Protein, Total 6.9 g/dL (6.4-8.2); Sodium Level 134 mmol/L (136-145)
[2021-08-07 07:09] LABS: Differential Indicated MANUAL DIFF
[2021-08-07 07:41] VITALS: BP 147/61; PULSE 68; RESP 16; TEMP 36.6; O2SAT 96
[2021-08-07] MEDS: dexAMETHasone 4 MG Tablet 6 MG PO (07:45)
[2021-08-07] MEDS: Furosemide 40 MG Tablet PO ×2 (07:45→16:50)
[2021-08-07 08:07] LABS: Eosinophil 1 % (0-5); Lymphocyte 21 % (19-41); Metamyelocyte 2 % (0-1); Monocyte 8 % (0-10); Neutrophil-Band 2 % (0-5); Neutrophil-Segmented 66 % (47-70); Platelet Estimate ADEQUATE (ADEQ); Red Cell Morphology NORM C+C NORMAL (NORM C&C); Total Cells Counted 100 (MANUAL DIFF)
[2021-08-07 08:08] LABS: Absolute Lymphocyte Count 3.59 X10^3/uL (0.83-4.51); Absolute Neutrophil Count 11.6 X10^3/uL (2.0-7.7); Lymphocyte # 3.59 X10^3/ul (0.83-4.51); Neutrophil # 11.64 X10^3/uL (2.7-7.7)
--- NOTE | 2021-08-07 09:26 | PN.HOSP_ITS ---
Subjective Subjective Patient had large chunk of his sputum, hemoptysis. This was witnessed by the nurse. Patient concerned therefore Lovenox is held. Currently on 2 L of oxygen. Objective Data Objective Data Vital Signs: Vital Signs Temp Pulse Resp BP Pulse Ox 97.8 F 68 16 147/61 H 96 08/07/21 07:41 08/07/21 07:41 08/07/21 07:41 08/07/21 07:41 08/07/21 07:41 Oxygen Flow Rate (L/min) [At 5 REST with Oxygen] Oxygen Flow Rate (L/min) [ 88 AMBULATING with Oxygen #2] Oxygen Flow Rate (L/min) [ 89 AMBULATING with Oxygen #1] Oxygen Flow Rate (L/min) 2 Oxygen Delivery Method Nasal Cannula Weight: 163 lb 12.855 oz Body Mass Index (BMI) 31.2 Intake & Output: Intake and Output for Last 24 Hours 08/05/21 08/06/21 08/07/21 23:59 23:59 23:59 Intake Total 1950 / 1950 950 / 950 Output Total 1225 / 1225 1550 / 1550 250 / 250 Balance 725 / 725 -600 / -600 -250 / -250 Lab / Micro Data Result Diagrams: 08/07/21 05:37 08/07/21 05:37 Labs: Laboratory Results - last 24 hr 08/07/21 05:37: WBC 17.1 H, RBC 4.70, Hgb 14.3, Hct 41.3, MCV 87.9, MCH 30.4, MCHC 34.6, RDW Std Deviation 38.9, RDW Coeff of Keri 12.1, Plt Count 466 H, MPV 10.9, Neut % (Auto) Not Reportable, Absolute Neuts (auto) 11.6 H, Absolute Lymphs (auto) 3.59, Total Counted 100, Neutrophils % (Manual) 66, Band Neutrophils % 2, Lymphocytes % (Manual) 21, Monocytes % (Manual) 8, Eosinophils % (Manual) 1, Metamyelocytes % 2 H, Diff Path Review December, Platelet Estimate ADEQUATE, RBC Morphology NORM C+C 08/07/21 05:37: Sodium 134 L, Potassium 3.2 L, Chloride 99, Carbon Dioxide 26.0, Anion Gap 9, BUN 47 H, Creatinine 1.03 H, Estim Creat Clear Calc 32.87, Est GFR (MDRD) Af Amer 66, Est GFR (MDRD) Non-Af 55 L, BUN/Creatinine Ratio 45.6 H, Glucose 101, Calcium 9.0, Total Bilirubin 1.20 H, AST 16, ALT 27, Alkaline Phosphatase 53, Total Protein 6.9, Albumin 2.5 L, Globulin 4.4 H, Al bumin/Globulin Ratio 0.6 L Micro: Microbiology 07/30/21 08:43 Blood Culture (Wb) - Anticubital Right Blood Culture - Final No growth in 5 days. 07/30/21 07:25 Urine, Clean Catch Urine Culture - Final Mixed Gram Positive Organisms 07/30/21 07:25 Urine, Clean Catch Streptococcus pneumoniae Antigen (M - Final 07/30/21 07:25 Urine, Clean Catch Legionella Antigen - Final 07/30/21 07:15 Stool Stool Occult Blood (CONSUELO) - Final Physical Exam Narrative Complain of mild scratchy throat/dry throat. Humidified oxygen. General: Alert, Oriented x3, Cooperative HEENT: Atraumatic, PERRLA, EOMI, Normocephalic Oral: No Gingival or Mucosal Lesions/ Ulcerations Neck: Supple, No JVD, Negative Carotid Bruits Lungs: Air entry diminished in bilateral lung bases. No crepitation/rhonchi Cardiovascular: Regular rate, Regular Rhythm, Normal S1, Normal S2, No murmurs Abdomen: Bowel Sounds Present, Soft, Non Tender, Non-Distended : No renal angle tenderness. No suprapubic tenderness. Extremities: No edema, Capillary Refill Less than 3 Seconds Skin: No rashes, No breakdown Musculoskeletal: No Tenderness to Palpation of Joints or Extremities Neurological: Cranial nerves II-XII grossly intact, DTR 2+/4 and Symmetrical, Neuro grossly intact Psych/Mental Status: Normal Affect, Appropriate. Assessment & Plan Assessment/Plan (1) Pneumonia due to COVID-19 virus: (2) Acute respiratory failure with hypoxia: (3) Hypophosphatemia: PLAN: Ramp added.1. Acute hypoxic respiratory failure secondary to acute COVID-19 pneumonia Oxygen has improved; now on 2 L of oxygen, down from 10L Completed remdesivir Continue on Decadron 08/07: Mild hemoptysis: Hemoglobin 14.3. Repeat CBC tomorrow a.m. 2. Hyperkalemia secondary to oral supplementation, resolved. Currently potassium is 3.2. Potassium supplement was discontinued. Spironolactone. History of heart failure 3. Hypophosphatemia, resolved. Repeat phosphorus 4.5. Magnesium 2.4. 4. Rest of chronic medical conditions including CAD, status post stent, CHF, GERD - remained stable Continue on Lasix 5. Debility related to the above, possible dc in am if improved with therapy. Charges/Coding Visit Charges Inpatient E&M: 91433 Subs Hosp L2
[2021-08-07 11:42] VITALS: BP 119/49; PULSE 82; RESP 16; TEMP 36.4; O2SAT 94
[2021-08-07 14:46] VITALS: BP 106/57; PULSE 82; RESP 16; TEMP 36.7; O2SAT 96
[2021-08-07] MEDS: Spironolactone 25 MG Tablet 12.5 MG PO (17:45)
[2021-08-07 21:05] VITALS: BP 122/58; PULSE 88; RESP 18; TEMP 36.5; O2SAT 94
[2021-08-07] MEDS: MELATONIN 3 MG TABLET PO (21:15)
[2021-08-08] VITALS (8 sets, daily range): BP systolic 106–120; BP diastolic 52–65; PULSE 67–88; RESP 16–18; TEMP 36.3–36.7; O2SAT 90–95
--- NOTE | 2021-08-08 07:27 | DCINST_ITS ---
Discharge Instructions Diet Discharge Diet: Low fat / Low cholesterol and 2000 mg Sodium Diet Activity Discharge Activity: May Not Drive Weight Bearing Status: Weight bearing as tolerated Dressing / Incision Call your doctor if you observe: Fever of 101 or Higher, Coldness, Increased Pain, Numbness or Tingling, Change in Color, Inability to urinate, Inability to have a bowel movement, Shortness of breath, Dizziness, Fainting spells, Swelling in the ankles, Chest pain, Prolonged hiccupping, Increased palpitations (irregular heartbeat), Calf discomfort and Uncontrolled pain Follow Up Care Test Results: Test results from this visit will be discussed in further detail at your follow-up appointment, if applicable. Discharge Plan Admission Admit Date/Time: 07/30/21 11:31 Primary Reason for Your Visit: covid 19 pneumnia, acute hypoxic respiratory f ailure Attending Provider: Dominick Sifuentes Primary Care Provider: Sundar Weller Instructions Additional Instructions / Restrictions: Self quarantine until 08/13/2021. Patient is vaccinated. Advised booster dose. Advised BMP in 1 week to check serum creatinine and potassium as patient is on Lasix and very low-dose spironolactone 12.5 mg every other day. Potassium supplement discontinued Discharge Orders/Prescriptions Prescriptions: New spironolactone 25 mg Tablet 12.5 mg PO QODAY Qty: 30 RF: 0 pseudoephedrine-guaifenesin [Mucinex D] 60-600 mg tablet extended release 12 hr 1 tab PO BID Qty: 14 RF: 0 Eliquis 2.5 mg tablet 2.5 mg PO BID Qty: 30 RF: 0 Continued ondansetron HCl 8 mg tablet 8 mg BID PRN PRN (Reason: Nausea) RF: 0 biotin 5 mg Tablet 5 mg PO DAILY RF: 0 furosemide [Lasix] 40 mg Tablet 40 mg PO BID Qty: 0 RF: 0 Discontinued potassium 20 mg Tablet,Chewable 40 mg PO BID RF: 0 Referrals / Follow Up: Sundar Weller MD [Primary Care Provider] - Within 2 Weeks SukiJohnny noland MD [STAFF PHYSICIAN] - Within 1 Month (With history of coronary artery disease and congestive heart failure)
--- NOTE | 2021-08-08 07:27 | DS.PCM_ITS ---
Providers Date of Admission: 07/30/21 Date of Discharge: 08/08/21 Primary Care Physician: Dr. Sundar Weller MD Reason For Visit: COVID Diagnosis Discharge Diagnosis (1) Pneumonia due to COVID-19 virus: Status: Acute Code(s): U07.1 - COVID-19; J12.82 - Pneumonia due to coronavirus disease 2019 (2) Acute respiratory failure with hypoxia: Status: Acute Code(s): J96.01 - Acute respiratory failure with hypoxia (3) Hypophosphatemia: Status: Acute Code(s): E83.39 - Other disorders of phosphorus metabolism Medications at Discharge Home Medications biotin 5 mg PO DAILY 07/30/21 ondansetron HCl 8 mg BID PRN PRN 07/30/21 apixaban [Eliquis] 2.5 mg PO BID #30 tab 08/08/21 furosemide [Lasix] 40 mg PO BID #0 tab 08/08/21 pseudoephedrine-guaifenesin [Mucinex D] 1 tab PO BID #14 tab 08/08/21 spironolactone 12.5 mg PO QODAY #30 tab 08/08/21 Hospital Course Summary of Care Provided Hospital Course: This 81-year-old female vaccinated against COVID-19 was admitted with 8 days of symptoms on 07/30. [facility] Completed 10 days of dexamethasone. Completed remdesivir. Her oxygenation improved to 2 L from 10 L. Patient had mild hemoptysis and was on Lovenox prophylactic dose twice daily which was held temporarily. H&H remained on baseline. Since he has a history of PE in is high risk for recurrence therefore prescription given for Eliquis 2.5 mg twice daily for 2 more weeks. She was also given prescription for Mucinex daily spironolactone 12.5 mg every other day for history of CHF. She had hyperkalemia she was on high dose of potassium supplement was held and then she went in hypokalemia started on low-dose spironolactone as mentioned above. 1. Acute hypoxic respiratory failure secondary to acute COVID-19 pneumonia 2. Hyperkalemia secondary to oral supplementation, resolved. Evaluation of 3. Hypophosphatemia, resolved. Repeat phosphorus 4.5. Magnesium 2.4. 4. Rest of chronic medical conditions including CAD, status post stent, CHF, GERD - remained stable Continue on Lasix. Spironolactone added. No prior echo or stress test available as she was getting her care in [place]. Advised to follow with Dr. Cohn and make appointment in 4 weeks as an outpatient cardiac studies and get medical records from the previous care 5. Debility related to the above, possible dc in am if improved with therapy. Discharge medication reconciliation done. Discharge follow-up instructions completed. Discharge process discussed with the patient and all questions were answered to patient's satisfaction. Total time spent, exact 35 minutes on discharge meds reconciliation, ex amination, coordination of care with nurses and ancillary staff, review of imaging and blood test and discussion with the patient on follow-up instructions Physical Exam Narrative on 2 litre/m. No further hemoptysis or epistaxis. Patient said she had history of PE back in General: Alert, Oriented x3, Cooperative HEENT: Atraumatic, PERRLA, EOMI, Normocephalic Oral: No Gingival or Mucosal Lesions/ Ulcerations Neck: Supple, No JVD, Negative Carotid Bruits Lungs: Air entry diminished in bilateral lung bases. No crepitation/rhonchi Cardiovascular: Regular rate, Regular Rhythm, Normal S1, Normal S2, No murmurs Abdomen: Bowel Sounds Present, Soft, Non Tender, Non-Distended : No renal angle tenderness. No suprapubic tenderness. Extremities: No edema, Capillary Refill Less than 3 Seconds Skin: No rashes, No breakdown Musculoskeletal: No Tenderness to Palpation of Joints or Extremities Neurological: Cranial nerves II-XII grossly intact, DTR 2+/4 and Symmetrical, Neuro grossly intact Psych/Mental Status: Normal Affect, Appropriate. Weight / BMI Weight Weight: 163 lb 12.855 oz Body Mass Index (BMI) 31.2 ABG / Lab / Microbiology Data Result Diagrams: 08/08/21 06:20 08/08/21 06:20 Laboratory: Laboratory Results - last 24 hr 08/07/21 05:37: Absolute Neuts (auto) 11.6 H, Absolute Lymphs (auto) 3.59, Total Counted 100, Neutrophils % (Manual) 66, Band Neutrophils % 2, Lymphocytes % (Manual) 21, Monocytes % (Manual) 8, Eosinophils % (Manual) 1, Metamyelocytes % 2 H, Diff Path Review December agatha Platelet Estimate ADEQUATE, RBC Morphology NORM C+C Microbiology: Microbiology 08/07/21 07:50 Sputum, Expectorated/Coughed Gram Stain - Final 07/30/21 08:43 Blood Culture (Wb) - Anticubital Right Blood Culture - Final No growth in 5 days. 07/30/21 07:25 Urine, Clean Catch Urine Culture - Final Mixed Gram Positive Organisms 07/30/21 07:25 Urine, Clean Catch Streptococcus pneumoniae Antigen (M - Final 07/30/21 07:25 Urine, Clean Catch Legionella Antigen - Final 07/30/21 07:15 Stool Stool Occult Blood (CONSUELO) - Final Meaningful Use Info Meaningful Use Diagnoses (Choose all that apply): None applicable Discharge Plan Admission Admit Date/Time: 07/30/21 11:31 Primary Reason for Your Visit: covid 19 pneumnia, acute hypoxic respiratory failure Attending Provider: Dominick Sifuentes Primary Care Provider: Sundar Weller Instructions Additional Instructions / Restrictions: Self quarantine until 08/13/2021. Patient is vaccinated. Advised booster dose. Advised BMP in 1 week to check serum creatinine and potassium as patient is on Lasix and very low-dose spironolactone 12.5 mg every other day. Potassium supplement discontinued Discharge Orders/Prescriptions Prescriptions: New spironolactone 25 mg Tablet 12.5 mg PO QODAY Qty: 30 RF: 0 pseudoephedrine-guaifenesin [Mucinex D] 60-600 mg tablet extended release 12 hr 1 tab PO BID Qty: 14 RF: 0 Eliquis 2.5 mg tablet 2.5 mg PO BID Qty: 30 RF: 0 Continued ondansetron HCl 8 mg tablet 8 mg BID PRN PRN (Reason: Nausea) RF: 0 biotin 5 mg Tablet 5 mg PO DAILY RF: 0 furosemide [Lasix] 40 mg Tablet 40 mg PO BID Qty: 0 RF: 0 Discontinued potassium 20 mg Tablet,Chewable 40 mg PO BID RF: 0 Referrals / Follow Up: Johnny Cohn MD [STAFF PHYSICIAN] - Within 1 Month (With history of coronary artery disease and congestive heart failure) Sundar Weller MD [Primary Care Provider] - Within 2 Weeks Charges/Coding Visit Charges Inpatient E&M: 30895 Disch Hosp
[2021-08-08 07:46] LABS: Hematocrit 29.5 % (37-47); Mean Corpuscular Volume 93.7 fL (81-99); POSITIVE COUNT YES; POSITIVE DIFFERENTIAL YES; POSITIVE MORPHOLOGY YES; Platelet Count 270 K/mm3 (150-450); RBC Distribution Width CV 14.7 % (11.6-14.6); RBC Distribution Width SD 41.3 fl (35.1-43.9); Red Blood Count 3.15 M/mm3 (4.2-5.4); White Blood Count 15.2 K/mm3 (4.4-11.0)
[2021-08-08 07:48] LABS: ALB/GLOB Ratio 0.3 RATIO (0.9-2.4); AST(SGOT) 45 U/L (15-37); Alanine Aminotransfer ALT/SGPT 43 U/L (13-56); Albumin, Serum 1.7 g/dL (3.2-5.0); Alkaline Phosphatase 76 U/L (45-117); Anion Gap 6 (5-15); BUN 39 mg/dL (7-18); BUN/Creat Ratio 44.8 RATIO (10-20); Chloride 108 mmol/L (98-107); Creatinine, Serum 0.87 mg/dL (0.55-1.02); EST Glomerular Filtration Rate 67 mL/min (>60); Est Glom Filt Rate - Afr Amer 81 mL/min (>60); Estimated Creatinine Clearance 38.92 ml/min; Globulin 4.9 g/dL (2.2-4.2); Glucose 75 mg/dL (74-106); Potassium 4.7 mmol/L (3.5-5.1); Protein, Total 6.6 g/dL (6.4-8.2); Sodium Level 132 mmol/L (136-145)
[2021-08-08] MEDS: Spironolactone 25 MG Tablet 12.5 MG PO (08:15)
[2021-08-08] MEDS: Furosemide 40 MG Tablet PO ×2 (08:15→16:18)
[2021-08-08] MEDS: dexAMETHasone 4 MG Tablet 6 MG PO (08:15)
[2021-08-08 08:28] LABS: Hemoglobin 15.2 g/dL (12.0-15.0)
[2021-08-08 08:31] LABS: Mean Corp Hgb Conc 51.8 g/dL (32-36); Mean Corpuscular Hgb 48.2 pg (27.0-32.0)
[2021-08-08 08:32] LABS: Differential Indicated MANUAL DIFF
[2021-08-08 08:59] LABS: Pathologist Review Reviewed
[2021-08-08 09:20] LABS: Pathologist Review Reviewed
[2021-08-08 09:35] LABS: Eosinophil 1 % (0-5); Lymphocyte 12 % (19-41); Metamyelocyte 4 % (0-1); Monocyte 9 % (0-10); Myelocyte 2 % (0-0); Neutrophil-Segmented 71 % (47-70); Platelet Estimate ADEQUATE (ADEQ); Promyelocyte 1 % (0-0); Red Cell Morphology NORM C+C NORMAL (NORM C&C); Total Cells Counted 100 (MANUAL DIFF)
[2021-08-08 09:36] LABS: Absolute Neutrophil Count 10.8 X10^3/uL (2.0-7.7); Lymphocyte # 1.81 X10^3/ul (0.83-4.51)
--- NOTE | 2021-08-08 11:12 | CASEMGMT ---
Addendum entered by Rissa John 08/08/21 13:24: Pt did not qualify for home O2. Addendum entered by Rissa John 08/08/21 12:04: TC to [facility], the cost of the Eliquis is $22.50. TC to pt room, pt states this is affordable. She is going to have her neighbor waste picker her medications for her. Original Note: RAJ CM in to pt room, pt lying in bed in no distress. Discussed dc planning and need for HHC. Pt denies need for HHC, she states she has a small house and she does have access to a rollator if she needs it. Pt has not been tested for O2 yet. Pt reports her son is at [facility] for COVID now. She states she still feels safe to return home, but he should be home later today.
[2021-08-08 13:28] LABS: Pathologist Review Reviewed
== END 2021-08-08 18:35 | disposition home or self-care (01) | DRG 177 ==
LOC: ED 11:26 → MS3 11:49
PROVIDERS: Internal Medicine; Student in an Organized Health Care Education/Training Program; Admitting Provider Internal Medicine; Emergency Provider Emergency Medicine; Visit Provider Internal Medicine
DX: U07.1 COVID-19 (principal); J12.82 Pneumonia due to coronavirus disease 2019; J96.01 Acute respiratory failure with hypoxia; I50.32 Chronic diastolic (congestive) heart failure; K21.9 Gastro-esophageal reflux disease without esophagitis; I25.10 Atherosclerotic heart disease of native coronary artery without angina pectoris; E87.5 Hyperkalemia; E83.39 Other disorders of phosphorus metabolism; E66.9 Obesity, unspecified; Z68.31 Body mass index [BMI] 31.0-31.9, adult; E87.6 Hypokalemia; Z86.711 Personal history of pulmonary embolism; Z79.899 Other long term (current) drug therapy
CPT/HCPCS: 36415; 71045; 71275; 80053; 81001; 82274; 83605; 83615; 83735; 83880; 84075; 84100; 84145; 84484; 85025; 85379; 85384; 85610; 85730; 86140; 86850; 86900; 86901; 87040; 87070; 87086; 87088; 87205; 87449; 87635; 93005; 94762; 97110; 97162; 97166; 97530; 97535; 97803; 99251; 99285; J7050; Q9967; U0005; A4216; G0463; J1940; U0003

== ENCOUNTER → 2022-12-29 | Outpatient (CLI) | payer MEDICARE, SELFPAY ==
--- NOTE | 2022-12-29 09:33 | CT_ITS ---
INDICATION: follow up pneumonia EXAMINATION: CT CHEST WITHOUT CONTRAST - CT Chest W/O Contrast Injection TECHNIQUE: Helically acquired images were obtained of the chest. A radiation dose optimization technique was used for this scan. IV Contrast dosage and agent: None. COMPARISON: 07/30/2021 FINDINGS: LUNGS, PLEURA AND LARGE AIRWAYS: Near-total resolution of the extensive groundglass opacities on prior study. Faint residual groundglass opacities predominantly in the lower lobes, left greater than right. No consolidations or pulmonary mass lesions. No pleural effusion or thickening. No pneumothorax. THYROID: Stable enlarged, heterogenous thyroid. HEART AND PERICARDIUM: Borderline cardiomegaly. No pericardial effusion. Extensive coronary artery calcifications VESSELS: 3.4 cm ectasia ascending aorta. MEDIASTINUM AND CORNELIA: No mediastinal or hilar adenopathy. Esophagus is unremarkable. No hiatal hernia. UPPER ABDOMEN: No acute pathology. BONES: No acute or aggressive abnormality. Stable right shoulder prosthesis. CT/Chest without Contrast IMPRESSION: Faint bibasilar groundglass opacities, persistent or recurrent compared to prior study. No consolidations or pleural effusions. Electronically Signed: Felipe Gabriel MD at 23:51 EDT ,
== END | disposition home or self-care (01) ==
LOC: CT 09:32
PROVIDERS: PCP Student in an Organized Health Care Education/Training Program; Referring Provider Internal Medicine; Visit Provider Internal Medicine
DX: U07.1 COVID-19 (principal); J12.82 Pneumonia due to coronavirus disease 2019
CPT/HCPCS: 71250

== ENCOUNTER → 2023-01-07 | Outpatient (CLI) | payer MEDICARE, SELFPAY | END | disposition home or self-care (01) | LOC: SL 20:02 | PROVIDERS: PCP Student in an Organized Health Care Education/Training Program; Referring Provider Internal Medicine; Visit Provider Internal Medicine | DX: G47.33 Obstructive sleep apnea (adult) (pediatric) (principal) | CPT/HCPCS: 95811 ==

== ENCOUNTER 2023-01-12 04:45 | Emergency (ER) | payer MEDICARE, SELFPAY ==
[2023-01-12 04:46] VITALS: BP 179/58; PULSE 67; RESP 15; TEMP 36.4; O2SAT 98; BMI 33.4
[2023-01-12 04:49] VITALS: O2SAT 98
--- NOTE | 2023-01-12 04:57 | CT_ITS ---
We are attempting to reach an attending provider to discuss findings. An addendum with communication details will be sent when the communication is complete. INDICATION: Trauma EXAMINATION: CT CERVICAL SPINE - CT Spine Cervical W/O Contrast Injection TECHNIQUE: Helically acquired images were obtained of the cervical spine. 2D reformatted images were reviewed. A radiation dose optimization technique was used for this scan. IV Contrast dosage and agent: None. RADIATION DOSAGE (If Supplied By Facility): CTDIvol = ( 23.85 ) mGy, DLP = ( 462.96 ) mGycm COMPARISON: FINDINGS: VERTEBRAE: There is a nondisplaced grade 3 odontoid fracture extending to the right lateral mass of C2. DISCS and SPINAL CANAL: Disc heights are preserved. No critical stenosis. NECK SOFT TISSUES: No prevertebral soft tissue swelling. There is no cervical adenopathy. There is anterior fusion at C4-5 and C5-6 in good alignment there is complete bony bridging between the vertebral bodies. LUNG APICES: Clear. CT/Spine Cervical without Contras IMPRESSION: There is a nondisplaced grade 3 odontoid fracture extending to the right lateral mass of C2. Electronically Signed: Frank Siegel MD at 6:18 EDT ,
--- NOTE | 2023-01-12 04:57 | CT_ITS ---
INDICATION: Trauma EXAMINATION: CT BRAIN - CT Head or Brain W/O Contrast Injection TECHNIQUE: Multiple axial images were obtained of the head without intravenous contrast. A radiation dose optimization technique was used for this scan. IV Contrast dosage and agent: None. 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 No intra- or extra-axial hemorrhage. No evidence of acute infarct. No intracranial mass or mass effect. There is preservation of the ray/white matter interface. Posterior fossa structures are unremarkable. CSF SPACES: Appropriate for age. No hydrocephalus. Basal cisterns are patent. CALVARIUM, SKULL BASE, PARANASAL SINUSES AND MASTOID AIR CELLS: Clear. No discrete lytic or blastic abnormalities. ORBITS: Both globes, extraocular muscles, optic nerves and retrobulbar fat appear unremarkable. ASPECTS Score for Acute Strokes: 10 CT/Brain/Head without Contrast IMPRESSION: No acute intracranial abnormality. Electronically Signed: Frank Siegel MD at 6:12 EDT ,
--- NOTE | 2023-01-12 04:58 | EX.ED.GENINJ ---
HPI History of Present Illness Chief Complaint: Head Injury Informant: patient and family Narrative Narrative: Patient accidentally rolled out of bed and hit her head on the nightstand. She denies loss of consciousness. She does state that the head is sore on that side where she hit. She is also concerned about her neck because she had prior fusion although she is not really having pain in that area. She does not have numbness tingling or weakness. She is on Coumadin for history of clotting. Sounds like she may have had PEs. Her last Coumadin level was about a week and a half ago and it was 2.3. She states she takes 5 mg a day except Saturday and Saturday she takes 2.5 mg. She is a very good informant. Her family states that she is acting totally normally also. She denies any other injury or areas of pain. She has been feeling fine and healthy. This sounds like this was a mechanical accidental fall from bed and it was not syncope. [facility] Medical History Broken humerus Cancer Chest pain Chronic kidney disease, stage 3a Congestive heart failure (CHF) COVID CPAP (continuous positive airway pressure) dependence Decreased appetite Dehydration Diarrhea Diverticulitis Elevated d-dimer Fatigue Hepatic cyst History of ectopic HLD (hyperlipidemia) Hypokalemia Hypothyroidism Left pulmonary embolus Left ventricular hypertrophy Liver cancer Lump in female breast Normocytic anemia THI on CPAP Osteoporosis Peripheral edema Pneumonia SOB (shortness of breath) T/A hypertrophy Thoracic aorta atherosclerosis Thyromegaly Vitamin B12 deficiency Vitamin D deficiency Home Medications ondansetron HCl 8 mg tablet 8 mg BID PRN PRN Nausea 07/30/21 [History Last Taken Unknown] acetaminophen 650 mg tablet,extended release (Tylenol Arthritis Pain) 650 mg PO Q8H 06/20/22 [History Last Taken Unknown] aspirin 81 mg tablet,delayed release (Adult Low Dose Aspirin) 81 mg PO DAILY 06/20/22 [History Last Taken Unknown] albuterol sulfate 90 mcg/actuation aerosol inhaler 1 puff inhalation Q4H PRN 12/05/22 [History Last Taken Unknown] bumetanide 2 mg tablet 2 mg PO DAILY PRN 12/05/22 [History Last Taken Unknown] vitamin B complex (B Complex-Vitamin B12 tablet) 1 tab PO DAILY 12/05/22 [History Last Taken Unknown] warfarin 5 mg tablet 5 mg PO .Sun,Tue,Wed,Adelina,Sat 12/05/22 [History Last Taken Unknown] cholecalciferol (vitamin D3) 50 mcg (2,000 unit) capsule 50 mcg PO DAILY 12/18/22 [History Last Taken Unknown] diphenhydramine HCl 50 mg capsule 50 mg PO QHS 12/18/22 [History Last Taken Unknown] famotidine 20 mg tablet 20 mg PO BID 12/18/22 [History Last Taken Unknown] lisinopril 5 mg tablet 5 mg PO BID 12/18/22 [History Last Taken Unknown] nitroglycerin 0.4 mg sublingual tablet 0.4 mg sublingual Q5M PRN 12/18/22 [History Last Taken Unknown] Allergy/AdvReac Type Severity Reaction Status Date / Time acetaminophen [From Percocet] Allergy Other Verified 06/26/22 09:28 ampicillin Allergy Rash Verified 06/26/22 09:28 azithromycin Allergy Rash Verified 06/26/22 09:28 cefaclor [From Ceclor] Allergy Rash Verified 06/26/22 09:28 gentamicin [From Garamycin] Allergy Rash Verified 06/26/22 09:28 oxycodone [From Percocet] Allergy Other Verified 06/26/22 09:28 tetracycline Allergy Rash Verified 06/26/22 09:28 atorvastatin [From Lipitor] AdvReac Other Verified 06/26/22 09:28 rosuvastatin [From Crestor] AdvReac Other Verified 06/26/22 09:28 Family History Father Heart disease Mother Colon cancer Other Bowel disease CVA (cerebral vascular accident) Cervical cancer H/O transfusion of whole blood High cholesterol Hypertension Kidney disease Melanoma Myocardial infarction Osteoporosis Surgical History H/O dilation and curettage H/O neck surgery H/O thyroidectomy H/O total hysterectomy History of appendectomy History of cholecystectomy History of right hip replacement Status post decompression of subacromial space Social History Smoking Status: Never smoker alcohol intake: never substance use type: does not use what type of physical activity do you participate in: none ROS ROS ED Constitutional Constitutional ED: Denies chills or fever(s) Eyes Eyes: Denies blurry vision or change in vision ENT ENT ED: Denies ear pain, rhinorrhea or sore throat Cardiovascular Cardiovascular: Denies chest pain or palpitations Respiratory/Chest Respiratory/Chest: Denies cough or dyspnea Gastrointestinal Gastrointestinal: Denies nausea or vomiting Musculoskeletal Musculoskeletal: Reports other Details: Patient is concerned about the neck but not really having pain in that area. She denies any other areas of pain either. Integumentary Reports other Details: Patient does have contusion to the right frontal area. Neurologic Neurologic: Reports headache(s); Denies paresthesias or weakness Hematologic/Lymphatic Hematologic/Lymphatic: Reports easy bleeding and easy bruising EXAM Physical Exam Narrative Exam Narrative: Patient awake alert sitting comfortably in bed. She is very pleasant. She is very alert and an excellent informant. HEENT: She has a contusion in the right upper forehead just within the hairline. There is only a mild amount of swelling in this area. There is no break of the skin. There is mild local tenderness but no step-off. There is no other areas of injury or trauma on her head or neck that are seen. No facial trauma. No epistaxis. Neck shows anterior cervical fusion scar in the right side of the neck along with a lower thyroid scar. There is no focal tenderness though. Lungs are clear bilaterally and saturations are normal at 98% on room air showing no hypoxia. Heart is regular. Abdomen soft nontender. Extremities show no contusions deformities or pain with palpation or abnormal bruising. There is no edema. Neurologically she is awake she is alert she is very quick weighted. She is an excellent informant for her medications and what happened. And she is acting normally per the family. Const Vital Signs: 01/12/23 04:46 01/12/23 04:49 01/12/23 06:15 Temperature 97.5 F L Temperature Source Oral Pulse Rate 67 62 Respiratory Rate 15 16 Respiratory Effort Normal Non-Labored Respiratory Depth Normal Respiratory Pattern Normal Blood Pressure 179/58 H 142/90 H Blood Pressure Mean 98 107 Pulse Ox 98 98 97 Oxygen Delivery Method Room Air Room Air Room Air MDM MDM MDM Narrative Medical decision making narrative: Independent rotation of the patient's CT of the head shows no acute process. Final reading is similar. My independent interpretation of the CT of the cervical spine is suspicious for C2 fracture. This is supported by final reading. CBC shows no marked abnormalities. INR is therapeutic at 2.1. This is not reversed as there is no indication of clinical bleeding. Electrolytes show minimally low potassium. Glucose renal function is normal. Independent interpretation of her 5 views of the right ribs showed no pneumothorax. She does have signs of her prior shoulder implant. Suspicion of a small crack at the lower portion of the eighth rib really visible on one and possibly second film. The report reads it is a possible left-sided but I see what may be on the right. In either case, her pain is on the right and she does not have a pneumothorax or hypoxia. I discussed the case with [facility]. They transferred me to their main trauma line. They then transferred me back to the ER at [facility]. I discussed the case with Dr. Fox who has excepted the patient to the ER. I explained this to the patient and son. Patient was preferring [facility] but they do not have beds or availability at this time. Lab Data Attestation: I reviewed the patient's lab results. Labs: Laboratory Results - last 24 hr 01/12/23 01/12/23 01/12/23 06:07 06:07 06:07 WBC 7.6 RBC 3.94 L Hgb 12.1 Hct 37.1 MCV 94.2 MCH 30.7 MCHC 32.6 RDW Std Deviation 46.0 H RDW Coeff of Keri 13.2 Plt Count 181 MPV 10.2 Immature Gran % (Auto) 0.800 Neut % (Auto) 55.2 Lymph % (Auto) 30.9 Jennings % (Auto) 11.4 H Eos % (Auto) 1.3 Baso % (Auto) 0.4 Absolute Neuts (auto) 4.2 Absolute Lymphs (auto) 2.33 Nucleated RBC % 0 PT 23.6 H INR 2.1 Sodium 140 Potassium 3.3 L Chloride 111 H Carbon Dioxide 24.0 Anion Gap 5 BUN 19 H Creatinine 0.86 Estim Creat Clear Calc 38.71 Est GFR (MDRD) Af Amer 82 Est GFR (MDRD) Non-Af 68 BUN/Creatinine Ratio 22.2 H Glucose 96 Calcium 9.6 Radiography Diagnostic Testing: Clinical Impression(s) from Imaging Studies Brain CT 01/12/23 04:57 IMPRESSION: No acute intracranial abnormality. Electronically Signed: Frank Siegel MD at 6:12 EDT Reading Location ID and State: [facility] / [place] Tel , Service support , Cervical Spine CT 01/12/23 04:57 IMPRESSION: There is a nondisplaced grade 3 odontoid fracture extending to the right lateral mass of C2. Electronically Signed: Frank Siegel MD at 6:18 EDT Reading Location ID and State: [facility] / [place] Tel , Service support , ADDENDUM: 01/12/23 0708 IMPRESSION: There is a nondisplaced grade 3 odontoid fracture extending to the right lateral mass of C2. N.B. : The above Results were Read Back by Frank Siegel MD to Alfa Almodovar MD, and understanding confirmed on 01/12/2023 07:01:13 (ET). Electronically Signed: Frank Siegel MD at 6:18 EDT Reading Location ID and State: [facility] / [place] Tel , Service support , Ribs w/Chest X-Ray 01/12/23 06:55 IMPRESSION: Possible left eighth rib fracture. Electronically Signed: Frank Siegel MD at 7:25 EDT Reading Location ID and State: [facility] / [place] Tel , Service support , Discharge Plan Triage Chief Complaint: Head Injury ED Provider: Alfa Almodovar Dx/Rx/DC Orders Clinical Impression: Type III fracture of odontoid process, CHI (closed head injury), Warfarin-induced coagulopathy, Fall from bed, Contusion of scalp Prescriptions: No Action aspirin [Adult Low Dose Aspirin] 81 mg tablet,delayed release (DR/EC) 81 mg PO DAILY acetaminophen [Tylenol Arthritis Pain] 650 mg tablet extended release 650 mg PO Q8H bumetanide 2 mg tablet 2 mg PO DAILY PRN albuterol sulfate 90 mcg/actuation HFA aerosol inhaler 1 puff inhalation Q4H PRN Label Comments: INHALE 1 PUFF BY MOUTH EVERY 4 HOURS NEEDED FOR WHEEZING vitamin B complex [B Complex-Vitamin B12] Tablet 1 tab PO DAILY warfarin 5 mg tablet 5 mg PO .Sun,Sat,Sat,Adelina,Sat Rx Instructions: 2.5 mg Mon,Sun diphenhydramine HCl 50 mg capsule 50 mg PO QHS famotidine 20 mg tablet 20 mg PO BID cholecalciferol (vitamin D3) 50 mcg (2,000 unit) capsule 50 mcg PO DAILY lisinopril 5 mg tablet 5 mg PO BID nitroglycerin 0.4 mg tablet, sublingual 0.4 mg sublingual Q5M PRN Rx Instructions: do not exceed 3 doses per episode ondansetron HCl 8 mg tablet 8 mg BID PRN PRN (Reason: Nausea) Primary Care Provider: Mega Laureano Referrals: Mega Laureano DO [Primary Care Provider] - 3-5 Days if not improving Disposition Disposition: Acute Care Hospital Discharge Location: [facility]
[2023-01-12 06:15] VITALS: BP 142/90; PULSE 62; RESP 16; O2SAT 97
[2023-01-12 06:15] LABS: Absolute Lymphocyte Count 2.33 X10^3/uL (0.83-4.51); Absolute Neutrophil Count 4.2 X10^3/uL (2.0-7.7); Basophil# 0.03 X10^3/uL; Basophil% 0.4 % (0-1); Eosinophils% 1.3 % (0-5); Hematocrit 37.1 % (37-47); Hemoglobin 12.1 g/dL (12.0-15.0); Lymphocyte # 2.33 X10^3/ul (0.83-4.51); Lymphocyte % 30.9 % (19-41); Mean Corp Hgb Conc 32.6 g/dL (32-36); Mean Corpuscular Hgb 30.7 pg (27.0-32.0); Mean Corpuscular Volume 94.2 fL (81-99); Mean Platelet Vol. 10.2 fl (6.2-12.0); Monocyte# 0.86 X10^3/uL; Monocyte% 11.4 % (0-10); NRBC Flagged by Analyzer 0 % (0-5); Neutrophil # 4.17 X10^3/uL (2.7-7.7); Neutrophil % 55.2 % (47-70); Platelet Count 181 K/mm3 (150-450); RBC Distribution Width CV 13.2 % (11.6-14.6); Red Blood Count 3.94 M/mm3 (4.2-5.4); White Blood Count 7.6 K/mm3 (4.4-11.0)
[2023-01-12 06:40] LABS: International Normalized Ratio 2.1; Prothrombin Time (Protime)PT. 23.6 SECONDS (11.7-14.9)
[2023-01-12 06:46] LABS: Anion Gap 5 (5-15); BUN 19 mg/dL (7-18); BUN/Creat Ratio 22.2 RATIO (10-20); Calcium,Total 9.6 mg/dL (8.5-10.1); Chloride 111 mmol/L (98-107); Creatinine, Serum 0.86 mg/dL (0.55-1.02); EST Glomerular Filtration Rate 68 mL/min (>60); Est Glom Filt Rate - Afr Amer 82 mL/min (>60); Estimated Creatinine Clearance 38.71 ml/min; Glucose 96 mg/dL (74-106); Potassium 3.3 mmol/L (3.5-5.1); Sodium Level 140 mmol/L (136-145)
--- NOTE | 2023-01-12 06:55 | RAD_ITS ---
INDICATION: trauma EXAMINATION/TECHNIQUE: X-RAY - XR Ribs Unilateral W/ PA Chest Min 3 Views COMPARISON: None. FINDINGS: SOFT TISSUES: No soft tissue swelling or gas. BONES: No displaced fracture. No sclerotic or destructive changes observed. Right shoulder arthroplasty. Dextroscoliosis of the thoracic spine. Calcified intra-articular loose body in the left shoulder. Possible left eighth rib fracture. VISUALIZED LUNGS: Clear. No pneumothorax. RAD/Ribs Uni Min 3V w/PA Chest IMPRESSION: Possible left eighth rib fracture. Electronically Signed: Frank Siegel MD at 7:25 EDT ,
[2023-01-12 08:00] VITALS: BP 170/59; PULSE 64; PULSE 68; RESP 15; RESP 17; O2SAT 98
[2023-01-12] MEDS: Ondansetron 4 MG/2 ML Vial IV (08:29)
[2023-01-12] MEDS: Morphine 4 MG/ML Syringe IV (08:29)
== END 2023-01-12 08:58 | disposition short-term general hospital (02) ==
PROVIDERS: Emergency Provider Emergency Medicine; PCP Student in an Organized Health Care Education/Training Program; Visit Provider Emergency Medicine
DX: S12.9XXA Fracture of neck, unspecified, initial encounter (principal); I50.9 Heart failure, unspecified; D68.9 Coagulation defect, unspecified; N18.31 Chronic kidney disease, stage 3a; E78.5 Hyperlipidemia, unspecified; Z79.01 Long term (current) use of anticoagulants; W06.XXXA Fall from bed, initial encounter; S00.03XA Contusion of scalp, initial encounter; S09.8XXA Other specified injuries of head, initial encounter; Z79.82 Long term (current) use of aspirin; Z99.89 Dependence on other enabling machines and devices; Z90.710 Acquired absence of both cervix and uterus; Z90.49 Acquired absence of other specified parts of digestive tract; Z96.641 Presence of right artificial hip joint
CPT/HCPCS: 99281; 70450; 71101; 72125; 80048; 85025; 85610; 96374; 96375; 99283; J2405

== ENCOUNTER → 2023-02-28 | Outpatient (CLI) | payer MEDICARE, SELFPAY | END | disposition home or self-care (01) | LOC: SL 13:00 | PROVIDERS: PCP Student in an Organized Health Care Education/Training Program; Visit Provider Internal Medicine | DX: Z46.89 Encounter for fitting and adjustment of other specified devices (principal) ==

== ENCOUNTER → 2023-04-08 | Outpatient (CLI) | payer MEDICARE, SELFPAY ==
--- NOTE | 2023-04-09 09:48 | PFT ---
INTRODUCTION: The patient is an 82-year-old female who presents for pulmonary function studies secondary to a diagnosis of COPD. Acceptability for for spirometry was not met due to the patient's inability to exhale to end expiratory criteria. Bronchodilators were used during testing. INTERPRETATION: Forced expiration spirometry demonstrates no evidence of a large airways obstructive ventilatory defect. There was no significant response to aerosolized bronchodilators. Spirograms are of suboptimal quality and terminate prior to 6 seconds, likely underestimating FVC. Body plethysmography was performed and revealed lung volumes to be within normal limits. Diffusing capacity by single breath CO was also within normal limits. IMPRESSION: Normal PFTs.
== END | disposition home or self-care (01) ==
LOC: PSN 11:02
PROVIDERS: PCP Student in an Organized Health Care Education/Training Program; Referring Provider Internal Medicine; Visit Provider Internal Medicine
DX: J96.01 Acute respiratory failure with hypoxia (principal)
CPT/HCPCS: 94060; 94726; 94729

== ENCOUNTER 2024-02-29 15:34 | Emergency (ER) | payer MEDICARE, SELFPAY ==
[2024-02-29 15:34] VITALS: BP 99/71; PULSE 69; RESP 18; TEMP 36.9; O2SAT 97; BMI 34.6
--- NOTE | 2024-02-29 15:41 | RAD_ITS ---
INDICATION: fall/injury EXAMINATION/TECHNIQUE: X-RAY - XR Pelvis 1 or 2 Views COMPARISON: FINDINGS: Sacroiliac joints are unremarkable. No widening of the pubic symphysis. There is a right total hip replacement. There is a left femoral neck fracture. No displaced fracture seen in this frontal view. No soft tissue swelling or gas. RAD/Pelvis 1 or 2 Views IMPRESSION: Left femoral neck fracture. Electronically Signed: Janak Moran DO at 17:46 EDT ,
--- NOTE | 2024-02-29 15:41 | RAD_ITS ---
INDICATION: fall/injury EXAMINATION/TECHNIQUE: X-RAY - LEFT XR Left Femur 4 VIEWS COMPARISON: FINDINGS: SOFT TISSUES: No soft tissue swelling or gas. No radiopaque foreign body. BONES/JOINTS: There is a left femoral neck fracture . Preservation of the joint space.. No sclerotic or destructive changes observed. RAD/Femur Min 2 Views IMPRESSION: Left femoral neck fracture. Electronically Signed: Janak Moran DO at 17:40 EDT ,
--- NOTE | 2024-02-29 15:44 | EKG12_ITS ---
Test Reason : GENERAL Blood Pressure : / mmHG Vent. Rate : 068 BPM Atrial Rate : 068 BPM P-R Int : 182 ms QRS Dur : 072 ms QT Int : 416 ms P-R-T Axes : 044 -11 019 degrees QTc Int : 442 ms Normal sinus rhythm Minimal voltage criteria for LVH, may be normal variant ( R in aVL ) Borderline ECG Confirmed by Brody Celeste ([id number]), assistant production editor KAREEM MORTON ([id number]) on 03/02/2024 1:37:49 PM Referred By: Confirmed By:Brody Celeste
--- NOTE | 2024-02-29 15:46 | EDS_ITS ---
HPI History of Present Illness Chief Complaint: Lower Extremity Injury Informant: patient Narrative Narrative: Patient states she usually walks with a cane and is often off balance without feeling vertiginous or disequilibrium, states she is unsteady on her legs, and today she was in her yard and stumbled and fell without any prodromal symptoms, falling to her left hip and injuring it, unable to stand or bear weight due to the pain and loss of function of the left hip. Presents by EMS. History of a total hip arthroplasty on the right 10 years ago, saw Dr. Blas in [place]. She states her tailbone hurts a little but otherwise she has no other injury. The pain in her left hip radiates down to the knee. [facility] Medical History Vitamin B12 deficiency Vitamin D deficiency Thyromegaly Thoracic aorta atherosclerosis SOB (shortness of breath) Left pulmonary embolus Peripheral edema Osteoporosis Normocytic anemia Left ventricular hypertrophy Hypokalemia HLD (hyperlipidemia) Liver cancer Hepatic cyst Fatigue Elevated d-dimer Dehydration Diarrhea Decreased appetite Chronic kidney disease, stage 3a Chest pain THI on CPAP Diverticulitis Broken humerus History of ectopic Lump in female breast T/A hypertrophy Pneumonia COVID Cancer Hypothyroidism CPAP (continuous positive airway pressure) dependence Congestive heart failure (CHF) Home Medications ?Medication ?Instructions ?Recorded ?Last Taken ?Type ondansetron HCl 8 mg tablet 8 mg BID PRN PRN Nausea 07/30/21 Unknown History acetaminophen 650 mg 650 mg PO Q8H 06/20/22 Unknown History tablet,extended release (Tylenol Arthritis Pain) aspirin 81 mg tablet,delayed 81 mg PO DAILY 06/20/22 Unknown History release (Adult Low Dose Aspirin) albuterol sulfate 90 mcg/actuation 1 puff inhalation Q4H PRN 12/05/22 Unknown History aerosol inhaler bumetanide 2 mg tablet 2 mg PO DAILY PRN 12/05/22 Unknown History vitamin B complex (B 1 tab PO DAILY 12/05/22 Unknown History Complex-Vitamin B12 tablet) warfarin 5 mg tablet 5 mg PO .Sun,e,Wed,Adelina,Sat 12/05/22 Unknown History cholecalciferol (vitamin D3) 50 50 mcg PO DAILY 12/18/22 Unknown History mcg (2,000 unit) capsule diphenhydramine HCl 50 mg capsule 50 mg PO QHS 12/18/22 Unknown History famotidine 20 mg tablet 20 mg PO BID 12/18/22 Unknown History lisinopril 5 mg tablet 5 mg PO BID 12/18/22 Unknown History nitroglycerin 0.4 mg sublingual 0.4 mg sublingual Q5M PRN 12/18/22 Unknown History tablet Allergy/AdvReac Type Severity Reaction Status Date / Time acetaminophen (From Percocet) Allergy Other Verified 02/29/24 15:34 ampicillin Allergy Rash Verified 02/29/24 15:34 azithromycin Allergy Rash Verified 02/29/24 15:34 cefaclor (From Ceclor) Allergy Rash Verified 02/29/24 15:34 gentamicin (From Garamycin) Allergy Rash Verified 02/29/24 15:34 oxycodone (From Percocet) Allergy Other Verified 02/29/24 15:34 tetracycline Allergy Rash Verified 02/29/24 15:34 atorvastatin (From Lipitor) AdvReac Other Verified 02/29/24 15:34 rosuvastatin (From Crestor) AdvReac Other Verified 02/29/24 15:34 Family History Father Heart disease Mother Colon cancer Other Bowel disease CVA (cerebral vascular accident) Cervical cancer H/O transfusion of whole blood High cholesterol Hypertension Kidney disease Melanoma Myocardial infarction Osteoporosis Surgical History History of right hip replacement H/O neck surgery Status post decompression of subacromial space H/O total hysterectomy H/O dilation and curettage H/O thyroidectomy History of cholecystectomy History of appendectomy Social History Smoking Status: Never smoker alcohol intake: never substance use type: does not use what type of physical activity do you participate in: none ROS ROS ED Constitutional Constitutional ED: Denies chills or fever(s) Cardiovascular Cardiovascular: Denies chest pain or syncope Respiratory/Chest Respiratory/Chest: Denies dyspnea Gastrointestinal Gastrointestinal: Denies abdominal pain or nausea Genitourinary Genitourinary ED: Denies dysuria Musculoskeletal Musculoskeletal: Reports extremity pain; Denies back pain or neck pain Integumentary Denies Abrasions, rash or wounds Neurologic Neurologic: Denies headache(s), paresthesias or weakness EXAM Physical Exam Const Vital Signs: 02/29/24 15:34 02/29/24 17:34 Temperature 98.4 F Temperature Source Oral Pulse Rate 69 67 Respiratory Rate 18 19 H Blood Pressure 99/71 147/56 H Blood Pressure Mean 80 86 Pulse Ox 97 98 Oxygen Delivery Method Room Air Room Air Positive well nourished and well developed General Appearance ED: well developed and NAD Neck full ROM and supple Chest Wall inspection of chest normal and palpation of chest normal Resp normal respiratory effort and clear to auscultation bilaterally Cardio regular rate and regular rhythm Rate: Negative for tachycardic GI non-tender and non-distended Narrative: Pelvis stable to AP compression, some pain on the left ASIS but no instability or crepitance. Back/Spine normal ROM and normal to inspection Extremity Extremity Narrative: Left hip externally rotated, significant pain with gentle logroll, and there is shortening of the left lower extremity. No other deformities, but she is tender throughout the entire femur and at the knee without any signs of trauma or distention of the compartments. Neurovascular intact distally. No significant tenderness below the knee. All other 3 extremities range without any difficulty or limitation at baseline. Neuro oriented x3, no focal motor deficits and no sensory deficits noted Sensorium / Orientation: alert Psych mental status grossly normal and thought process normal Skin no wounds Rashes: no rashes MDM MDM MDM Narrative Medical decision making narrative: Suspicion for a hip fracture, nonoperative pelvic fractures are also in the differential here. Her pelvis is stable. She presented with an EMS binder that we removed. Patient was more comfortable after pain medication. She is tender all the way down the femur although my suspicion is that her injury is at the hip based on exam. X-ray of the femur 4 views my interpretation shows what appears to be a nondisplaced femoral neck fracture, 1 view pelvis on my interpretation shows same and I see no other signs of a different pelvic fracture. 1 view chest x-ray preoperative shows no acute abnormalities or pne umonia. Currently we do not have any unassigned orthopedic coverage. The patient has never been seen or established at any of the orthopedic groups in this area. She is requesting to be transferred to [place] if she needs to go to a different hospital, which she does given at this time we do not have the capacity to take care of a hip fracture. I spoke with orthopedics Dr. Blas there who will see her in the morning, and spoke with Dr. Gtz internal medicine who accepts the patient to [facility]. History & Record Review Discussion w/independent historian: EMS personnel, Patient and Family Lab Data Attestation: I reviewed the patient's lab results. Labs: Laboratory Results - last 24 hr 02/29/24 02/29/24 02/29/24 15:50 15:50 16:05 WBC Cancelled 7.0 Corrected WBC Cancelled RBC Cancelled 3.92 L Hgb Cancelled 12.1 Hct Cancelled 35.9 L MCV Cancelled 91.6 MCH Cancelled 30.9 MCHC Cancelled 33.7 RDW Std Deviation Cancelled 48.5 H RDW Coeff of Keri Cancelled 14.4 Plt Count Cancelled 172 MPV Cancelled 10.2 Immature Gran % (Auto) Cancelled 0.400 Neut % (Auto) Cancelled 50.1 Lymph % (Auto) Cancelled 36.2 [place] % (Auto) Cancelled 11.2 H Eos % (Auto) Cancelled 1.4 Baso % (Auto) Cancelled 0.7 Absolute Neuts (auto) Cancelled 3.5 Absolute Lymphs (auto) Cancelled 2.55 Total Counted Cancelled Neutrophils % (Manual) Cancelled Band Neutrophils % Cancelled Lymphocytes % (Manual) Cancelled Monocytes % (Manual) Cancelled Eosinophils % (Manual) Cancelled Basophils % (Manual) Cancelled Metamyelocytes % Cancelled Myelocytes % Cancelled Promyelocytes % Cancelled Blast Cells % Cancelled Plasma Cell % (Manual) Cancelled Other Cells % Cancelled Nucleated RBC % Cancelled 0 Nucleated RBCs/100 WBC Cancelled Differential Comment Cancelled Diff Path Review Cancelled Hypersegmented Neuts Cancelled Atypical Lymphocytes Cancelled Reactive Lymphocytes Cancelled Smudge Cells Cancelled Toxic Granulation Cancelled Toxic Vacuolation Cancelled Dohle Bodies Cancelled Lesley Rods Cancelled Platelet Estimate Cancelled Plt Morphology Comment Cancelled RBC Morphology Cancelled Cancelled Polychromasia Cancelled Hypochromasia Cancelled Basophilic Stippling Cancelled Anisocytosis Cancelled Microcytosis Cancelled Macrocytosis Cancelled Spherocytes Cancelled Sickle Cells Cancelled Target Cells Cancelled Tear Drop Cells Cancelled Ovalocytes Cancelled Stomatocytes Cancelled [place] Bodies Cancelled Onley Cells Cancelled Bite Cells Cancelled Crenated Cell Cancelled Acanthocytes (Spur) Cancelled Rouleaux Cancelled Schistocytes Cancelled PT 15.1 H INR 1.2 Sodium 138 Potassium 4.2 Chloride 110 H Carbon Dioxide 17.0 L Anion Gap 11 BUN 27 H Creatinine 1.05 H Estim Creat Clear Calc 40.38 Est GFR (MDRD) Af Amer 64 Est GFR (MDRD) Non-Af 53 L BUN/Creatinine Ratio 25.7 H Glucose 93 Calcium 9.5 Radiography Diagnostic Testing: Clinical Impression(s) from Imaging Studies Femur X-Ray 02/29/24 15:41 IMPRESSION: Left femoral neck fracture. Electronically Signed: Janak Moran DO at 17:40 EDT , Pelvis X-Ray 02/29/24 15:41 IMPRESSION: Left femoral neck fracture. Electronically Signed: Janak Moran DO at 17:46 EDT , Chest X-Ray 02/29/24 16:45 IMPRESSION: No radiographic evidence of acute cardiopulmonary disease. Electronically Signed: Janak Moran DO at 17:41 EDT , Rhythm Strip Rhythm Strip: Sinus Rhythm Rate: 68 Ectopy: None EKG Initial EKG: Attestation: I personally reviewed and interpreted this EKG as follows: Interpretation: Sinus Rhythm and No Acute Injury Pattern Management Discussion w/another healthcare provider: Field Manager Discharge Plan Triage Chief Complaint: Lower Extremity Injury ED Provider: Juan Rowe Dx/Rx/DC Orders Clinical Impression: Nondisplaced fracture of neck of left femur, Fall due to stumbling Prescriptions: No Action aspirin [Adult Low Dose Aspirin] 81 mg tablet,delayed release (DR/EC) 81 mg PO DAILY acetaminophen [Tylenol Arthritis Pain] 650 mg tablet extended release 650 mg PO Q8H bumetanide 2 mg tablet 2 mg PO DAILY PRN albuterol sulfate 90 mcg/actuation HFA aerosol inhaler 1 puff inhalation Q4H PRN Patient Comments: INHALE 1 PUFF BY MOUTH EVERY 4 HOURS NEEDED FOR WHEEZING vitamin B complex [B Complex-Vitamin B12] Tablet 1 tab PO DAILY warfarin 5 mg tablet 5 mg PO .Sun,Sat,Sat,Adelina,Sat Rx Instructions: 2.5 mg Mon,Sun diphenhydramine HCl 50 mg capsule 50 mg PO QHS famotidine 20 mg tablet 20 mg PO BID cholecalciferol (vitamin D3) 50 mcg (2,000 unit) capsule 50 mcg PO DAILY lisinopril 5 mg tablet 5 mg PO BID nitroglycerin 0.4 mg tablet, sublingual 0.4 mg sublingual Q5M PRN Rx Instructions: do not exceed 3 doses per episode ondansetron HCl 8 mg tablet 8 mg BID PRN PRN (Reason: Nausea) Primary Care Provider: Mega Laureano Referrals: Mega Laureano DO [Primary Care Provider] - Print Language: Afghan Disposition Disposition: Acute Care Hospital
[2024-02-29] MEDS: Ondansetron 4 MG/2 ML Vial IV (15:52)
[2024-02-29] MEDS: Morphine 4 MG/ML Syringe IV (15:53)
[2024-02-29] MEDS: 0.9% Normal Saline (1000mL) 1,000 ML 100 ML IV (15:59)
[2024-02-29 16:08] LABS: International Normalized Ratio 1.2; Prothrombin Time (Protime)PT. 15.1 SECONDS (11.7-14.9)
[2024-02-29] MEDS: fentaNYL 100 MCG/2 ML Ampul 50 MCG IV (16:19)
[2024-02-29 16:21] LABS: Absolute Lymphocyte Count 2.55 X10^3/uL (0.83-4.51); Absolute Neutrophil Count 3.5 X10^3/uL (2.0-7.7); Basophil# 0.05 X10^3/uL; Basophil% 0.7 % (0-1); Eosinophils% 1.4 % (0-5); Hematocrit 35.9 % (37-47); Hemoglobin 12.1 g/dL (12.0-15.0); Lymphocyte # 2.55 X10^3/ul (0.83-4.51); Lymphocyte % 36.2 % (19-41); Mean Corp Hgb Conc 33.7 g/dL (32-36); Mean Corpuscular Hgb 30.9 pg (27.0-32.0); Mean Corpuscular Volume 91.6 fL (81-99); Mean Platelet Vol. 10.2 fl (6.2-12.0); Monocyte# 0.79 X10^3/uL; Monocyte% 11.2 % (0-10); NRBC Flagged by Analyzer 0 % (0-5); Neutrophil # 3.52 X10^3/uL (2.7-7.7); Neutrophil % 50.1 % (47-70); Platelet Count 172 K/mm3 (150-450); RBC Distribution Width CV 14.4 % (11.6-14.6); RBC Distribution Width SD 48.5 fl (35.1-43.9); Red Blood Count 3.92 M/mm3 (4.2-5.4)
[2024-02-29 16:22] LABS: Anion Gap 11 (5-15); BUN 27 mg/dL (7-18); BUN/Creat Ratio 25.7 RATIO (10-20); Calcium,Total 9.5 mg/dL (8.5-10.1); Chloride 110 mmol/L (98-107); Creatinine, Serum 1.05 mg/dL (0.55-1.02); EST Glomerular Filtration Rate 53 mL/min (>60); Est Glom Filt Rate - Afr Amer 64 mL/min (>60); Estimated Creatinine Clearance 40.38 ml/min; Glucose 93 mg/dL (74-106); Potassium 4.2 mmol/L (3.5-5.1); Sodium Level 138 mmol/L (136-145)
--- NOTE | 2024-02-29 16:45 | RAD_ITS ---
INDICATION: fall EXAMINATION/TECHNIQUE: X-RAY - XR Chest 1 View COMPARISON: FINDINGS: LINES/DEVICES: None. LUNGS: No consolidation, edema or effusion. No pneumothorax. MEDIASTINUM AND CARDIOVASCULAR STRUCTURES: Cardiac silhouette not enlarged. Central airways and mediastinal contour are unremarkable. BONES AND SOFT TISSUES: There is a right shoulder prosthesis. Surgical fusion at the lower cervical levels. Degenerative thoracic vertebral changes. RAD/Chest 1 View IMPRESSION: No radiographic evidence of acute cardiopulmonary disease. Electronically Signed: Janak Moran DO at 17:41 EDT ,
[2024-02-29 17:34] VITALS: BP 147/56; PULSE 67; RESP 19; O2SAT 98
[2024-02-29] MEDS: HYDROmorphone 1 MG/ML Syringe IV ×2 (17:41→20:45)
[2024-02-29 19:38] VITALS: BP 161/55; PULSE 67; RESP 13; O2SAT 99
[2024-02-29 21:00] VITALS: BP 156/51; PULSE 69; RESP 14; O2SAT 93
[2024-02-29 23:00] VITALS: BP 143/58; PULSE 61; RESP 12; O2SAT 97
[2024-03-01] MEDS: HYDROmorphone 1 MG/ML Syringe IV ×2 (00:38→03:47)
[2024-03-01] MEDS: 0.9% Normal Saline (1000mL) 1,000 ML 100 ML IV (00:39)
[2024-03-01 01:00] VITALS: BP 142/49; PULSE 63; RESP 11; O2SAT 96
--- NOTE | 2024-03-01 02:46 | ED.RN ---
I CALLED [facility] TO GET AN UPDATE ON THE BED STATUS FOR PT. THEY CLAIMED THAT SHE HAS ALREADY HAD A BED SINCE 2299 WHEN SHE RECEIVED REPORT AT [facility] AND THAT THEY WERE WAITING FOR HER TO ARRIVE. I LET THEM KNOW THAT I HAD NEVER GOTTEN A CALL ABOUT THE BED ASSIGNMENT AND I'VE BEEN WORKING SINCE 1829. I ASKED THEM ABOUT IF IT WAS DOCUMENTED THAT SOMEONE TALKED TO ONE OF OUR STAFF/NURSES AND SHE AVOID THE QUESTION BY REPEATING HERSELF SAYING THAT SHES HAD A BED AND THEY WERE JUST WAITING FOR HER TO ARRIVE. I CONCLUDED BY STATING IT WOULD BE A GOOD IDEA TO CLARIFY THROUGH DOCUMENTATION AND OR CALLING THE HOSPITAL WHO THEY WOULD BE RECEIVING A PT FROM.
[2024-03-01 03:00] VITALS: BP 169/54; PULSE 65; RESP 13; TEMP 36.9; O2SAT 97
[2024-03-01] MEDS: Ketorolac 15 MG/ML Vial IV (03:47)
== END 2024-03-01 04:00 | disposition short-term general hospital (02) ==
PROVIDERS: Emergency Provider Emergency Medicine; PCP Student in an Organized Health Care Education/Training Program; Visit Provider Emergency Medicine
DX: S72.002A Fracture of unspecified part of neck of left femur, initial encounter for closed fracture (principal); I50.9 Heart failure, unspecified; N18.31 Chronic kidney disease, stage 3a; G47.33 Obstructive sleep apnea (adult) (pediatric); Z86.711 Personal history of pulmonary embolism; W19.XXXA Unspecified fall, initial encounter; Z86.16 Personal history of COVID-19
CPT/HCPCS: 71045; 72170; 73552; 80048; 85025; 85610; 93005; 96361; 96374; 96375; 96376; 99284; J7030; A4216; J2405